=== PATIENT | female | born 1945 | race Caucasian/White ===

== ENCOUNTER 2018-03-31 12:28 | Inpatient (IN) | payer MEDICARE, OTHER, SELFPAY ==
[2018-03-31] VITALS (11 sets, daily range): BP systolic 99–138; BP diastolic 64–103; PULSE 59–67; RESP 15–20; TEMP 35.7–36.7; O2SAT 78–98; BMI 44.6
--- NOTE | 2018-03-31 12:53 | ED.NAVMDI ---
HPI - Nausea/Vomiting/Diarrhea General Chief complaint: Nausea/Vomiting/Diarrhea Stated complaint: nausea Time Seen by Provider: 03/31/18 12:30 Source: patient and EMS Mode of arrival: EMS Limitations: no limitations History of Present Illness HPI Narrative: 72-year-old female with complicated medical history presents with a chief complaint a vague headache for the past day or 2 as well as increasing fatigue, bilateral lower extremity swelling, shortness of breath, particularly with exertion. She is on oxygen at night as well as CPAP but has required oxygen during the day. Originally pulse ox was found to be in the mid 80s even at 2 L at her longterm. Patient denies any focal neurologic findings such as blurred vision, trouble with speech or extremity weakness. She denies any chest pain. She has had a nonproductive cough and has been nauseated but denies vomiting or diarrhea. Patient denies any change in her medications, additionally denying any missed doses of her Lasix. 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 Head CT ordered because patient complains that the dizziness she senses today is similar to prior stroke, but again patient has no other focal neurologic findings MD complaint: nausea Onset (ago): hour(s) Description of Diarrhea: none Related Data Home Medications Medication Instructions Recorded Confirmed albuterol sulfate 2 puff INH Q4H PRN #0 05/01/08 03/31/18 allopurinol 300 mg PO DAILY #0 05/01/08 03/31/18 cetirizine 10 mg PO DAILY #0 05/01/08 03/31/18 gabapentin 300 mg PO QPM #0 05/01/08 03/31/18 metoprolol succinate 100 mg PO BID #0 05/01/08 03/31/18 acetaminophen 1 tab PO Q4H PRN MDD 3000 mg 03/31/18 03/31/18 acetaminophen 650 mg PO Q4H PRN 03/31/18 03/31/18 amlodipine 2.5 mg PO DAILY 03/31/18 03/31/18 aspirin 81 mg PO DAILY 03/31/18 03/31/18 bisacodyl 1 supp WI PRN PRN 03/31/18 03/31/18 bisacodyl 5 - 10 mg PO PRN PRN 03/31/18 03/31/18 esomeprazole magnesium [Nexium] 40 mg PO DAILY 03/31/18 03/31/18 furosemide 80 mg PO BID 03/31/18 03/31/18 hydrocodone-acetaminophen 1 tab PO Q6H PRN 03/31/18 03/31/18 hydrocodone-acetaminophen 2 tab PO Q6H PRN 03/31/18 03/31/18 insulin aspart U-100 [Novolog 1 dose SUB-Q AC 03/31/18 03/31/18 U-100 Insulin aspart] insulin aspart U-100 [Novolog 1 dose SUB-Q PRN PRN 03/31/18 03/31/18 U-100 Insulin aspart] levetiracetam 500 mg PO BID 03/31/18 03/31/18 magnesium hydroxide [Milk of 30 ml PO PRN PRN 03/31/18 03/31/18 Magnesia] menthol [Biofreeze (menthol)] 1 applic TOPICAL Q4H PRN 03/31/18 03/31/18 ondansetron HCl 4 mg PO Q4H PRN 03/31/18 03/31/18 peg [id number] 2 drp OPHTHALMIC (EYE) Q6H PRN 03/31/18 03/31/18 [Artificial Tears([id number])] potassium chloride 20 meq PO DAILY 03/31/18 03/31/18 promethazine 25 mg IM .ONCE 03/31/18 03/31/18 rosuvastatin 5 mg PO QPM 03/31/18 03/31/18 sodium phosphates [Fleet Enema] 1 ea WI PRN PRN 03/31/18 03/31/18 tramadol 50 mg PO Q6H PRN 03/31/18 03/31/18 tramadol 100 mg PO Q6H PRN 03/31/18 03/31/18 venlafaxine 37.5 mg PO DAILY 03/31/18 03/31/18 Allergies Allergy/AdvReac Type Severity Reaction Status Date / Time NSAIDS (Non-Steroidal Allergy Difficulty Verified 03/31/18 12:46 Anti-Inflamma Breathing Review of Systems Review of Systems All systems reviewed & are unremarkable except as noted in HPI and below Constitutional Reports body ache(s), Denies chills, Denies fever(s), Denies lethargy, Reports weakness and Reports weight gain Eyes Denies change in vision, Denies eye discharge, Denies irritation and Denies loss of vision ENT Ears, Nose, Mouth, and Throat: Denies change in voice, Denies neck pain and Denies sore throat Cardiovascular Denies chest pain, Denies irregular heart rhythm, Denies lightheadedness, Denies palpitations, Reports dyspnea, Reports dyspnea on exertion and Reports orthopnea Respiratory Reports cough, Reports dyspnea, Reports dyspnea on exertion and Denies wheezing Gastrointestinal Gastrointestinal: Denies abdominal pain, Denies change in bowel habits, Denies diarrhea, Reports nausea and Denies vomiting Genitourinary Denies hematuria, Denies flank pain, Denies urinary incontinence and Denies urinary urgency Musculoskeletal Denies neck pain Comments: Bilateral lower extremity swelling Integumentary/Breasts Denies pruritus, Denies erythema, Denies rash and Denies wounds Neurologic Denies confusion, Denies loss of vision and Reports weakness Psychiatric Denies anxiety, Denies confusion, Denies depression, Denies homicidal ideation and Denies suicidal ideation Endocrine Denies palpitations Hematologic/Lymphatic Denies easy bruising Allergic/Immunologic Denies wheezing [facility] Social History Smoking Status: Never smoker Exam Narrative Exam Narrative: 72-year-old female in mild respiratory distress with some obvious dyspnea and tachypnea but ability to complete sentences. She is using her accessory muscles a bit Initial Vital Signs Initial Vital Signs: Vital Signs Temperature 97.8 F 03/31/18 12:33 Pulse Rate 67 03/31/18 12:33 Respiratory Rate 20 03/31/18 12:33 Blood Pressure 128/71 H 03/31/18 12:33 Pulse Oximetry 78 L 03/31/18 12:33 Const General: cooperative, well developed and in distress Nutritional Appearance: overweight Orientation: alert, awake, oriented x3 and not confused HENAL Head: normocephalic and atraumatic Ears: external ears normal and TM's normal bilaterally Nose: external nose normal and No nasal discharge Face and sinus: sinuses nontender, face symmetric, no sinus tenderness and No dry mucous membranes Mouth: oral mucosae normal and moist mucous membranes Teeth and gingiva: dentition normal Throat: tonsils normal and uvula midline Eyes General: appearance normal, both eyes and all related structures Eyelids: eyelids normal Conjunctivae: conjunctivae normal Sclera: sclerae normal Pupils: PERRL EOM: EOM intact bilaterally Chest Chest: normal inspection of the chest Resp Effort & Inspection: able to speak in complete sentences, respiratory distress and uses accessory muscles Auscultation: rales, no rhonchi and no wheezes Cardio Rate: regular rate Rhythm: regular rhythm Heart Sounds: no click, no gallops, no murmurs and no rubs Pulses: normal peripheral pulses Back/Spine/Pelvis Back: No CVA tenderness Cervical Spine: cervical ROM normal and No pain with cervical ROM Thoracic/Lumbar Spine: thoracic and lumbar spine normal to inspection Skin General: no rashes or lesions noted, No jaundice and No petechiae Neuro General: alert, oriented x3, gait normal and no focal motor deficits Speech: speech normal Extrem Right lower extremity: edema Left lower extremity: edema Course Orders Ordered: ED Orders 03/31/18 12:31 Consult to Respiratory Therapy Evaluate & Treat EKG-12 Lead Stat 03/31/18 12:58 B Type Natriuretic Peptide Stat Basic Metabolic Panel Stat Blood Culture Stat Complete Blood Count AUTO DIFF Stat Lactate (Lactic Acid) Stat Magnesium Stat Procalcitonin Stat Troponin & CK Cardiac Panel Stat 03/31/18 13:01 XR chest 1V Stat 03/31/18 13:03 CT head/brain wo con Stat Discontinued Medications Furosemide (Lasix) 40 mg IV NOW ONE Stop: 03/31/18 13:03 Last Admin: 03/31/18 13:21 Dose: 40 mg Reevaluation(s) Reevaluation #1: Patient feeling much better on oxygen by nasal cannula. She made sufficient urine with Lasix 40 mg IVP. Consultations Consultation #1: Dr. Almonte happy to accept patient Time: 14:09 Vital Signs - 8 hr 03/31/18 12:33 03/31/18 12:35 03/31/18 13:33 Temperature 97.8 F 97.8 F Pulse Rate 67 67 64 Respiratory Rate 20 20 16 Blood Pressure 128/71 H Blood Pressure [Right Arm] 128/71 H 128/71 H 129/73 H Pulse Oximetry 78 L 93 98 MDM - Nausea/Vomiting/Diarrhea Medical Records Attestation: I reviewed the patient's medical records. Lab Data Result diagrams: 03/31/18 12:58 03/31/18 12:58 Lab Results 03/31/18 03/31/18 03/31/18 Range/Units 12:58 12:58 12:58 WBC 9.0 (4.5-11.0) X10^3/uL RBC 4.55 (4.0-5.2) X10^6/uL Hgb 11.5 L (12.0-16.0) g/dL Hct 37.7 (36-46) % MCV 83.0 (80-100) fL MCH 25.4 L (26-34) PG MCHC 30.6 (30-36) % RDW 18.0 H (11.6-14.8) % Plt Count 142 L (150-400) X10^3/uL Neut % (Auto) 67.1 (50-75) % Lymph % (Auto) 25.9 (25-40) % Lander % (Auto) 5.4 (3-14) % Eos % (Auto) 1.1 L (2-4) % Baso % (Auto) 0.5 (0-2) % Neut # (Auto) 6000 H (3631-5163) /uL Sodium 142 (137-145) mmol/L Potassium 4.6 (3.4-5.1) mmol/L Chloride 99 (98-107) mmol/L Carbon Dioxide 30 (22-32) mmol/L BUN 40 H (7-17) mg/dL Creatinine 2.40 H (0.52-1.04) mg/dL Estimated GFR 19.9 L (>60) mL/min BUN/Creatinine Ratio 16.7 (6-22) Glucose 137 H (80-110) mg/dL Lactate (0.7-2.1) mmol/L Calcium 9.4 (8.4-10.2) mg/dL Magnesium 1.7 (1.6-2.3) mg/dL Total Creatine Kinase 83 (30-135) U/L B-Natriuretic Peptide 1540.0 H (<100) Procalcitonin 0.14 (<0.5) ng/mL 03/31/18 Range/Units 12:58 WBC (4.5-11.0) X10^3/uL RBC (4.0-5.2) X10^6/uL Hgb (12.0-16.0) g/dL Hct (36-46) % MCV (80-100) fL MCH (26-34) PG MCHC (30-36) % RDW (11.6-14.8) % Plt Count (150-400) X10^3/uL Neut % (Auto) (50-75) % Lymph % (Auto) (25-40) % Lander % (Auto) (3-14) % Eos % (Auto) (2-4) % Baso % (Auto) (0-2) % Neut # (Auto) (6804-5063) /uL Sodium (137-145) mmol/L Potassium (3.4-5.1) mmol/L Chloride (98-107) mmol/L Carbon Dioxide (22-32) mmol/L BUN (7-17) mg/dL Creatinine (0.52-1.04) mg/dL Estimated GFR (>60) mL/min BUN/Creatinine Ratio (6-22) Glucose (80-110) mg/dL Lactate 2.2 H (0.7-2.1) mmol/L Calcium (8.4-10.2) mg/dL Magnesium (1.6-2.3) mg/dL Total Creatine Kinase (30-135) U/L B-Natriuretic Peptide (<100) Procalcitonin (<0.5) ng/mL Imaging Data CT scan - head: Radiologist's impression: TECHNIQUE: Noncontrast 4.5 mm thick angled axial sections acquired from the foramen magnum to the vertex, with coronal and sagittal reformats. For radiation dose reduction, the following was used: automated exposure control, adjustment of mA and/or kV according to patient size. COMPARISON: None. FINDINGS: Image quality: Excellent. CSF spaces: Basal cisterns are patent. No extra-axial fluid collections. Ventricles are normal in size and shape. Brain: No midline shift. No intracranial masses or hemorrhage. Focal area of hypoattenuation consistent with encephalomalacia in the left cerebral hemisphere. Skull and face: Calvarium and visualized facial bones are intact, without suspicious lesions. Bilateral lens replacements noted. There are punctate foci of air within and surrounding the left pterygoid muscles and adjacent the left cavernous internal carotid artery, of uncertain clinical significance. Sinuses: Mastoid air cells are clear. There are bilateral maxillary sinus mucosal retention cysts. IMPRESSION: #1. No acute intracranial hemorrhage. #2. 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 Superimposed acute infarct in this region is difficult to exclude. Consider followup brain MRI if there is continued clinical concern for acute infarct. #3. Punctate foci of air within and surrounding the left pterygoid muscles and adjacent to the left cavernous internal carotid artery, which are of uncertain clinical significance. Dictated by: Kevyn Palm M.D. on 03/31/2018 at 13:35 Approved by: Kevyn Palm M.D. on 03/31/2018 at 13:44 ECG Data Attestation: I personally reviewed and interpreted this ECG as follows: Prior ECG tracings: not available for review Interpretation: Paced rhythm. No obvious ischemia or ectopy Discharge Plan Departure Patient Disposition: Admitted As Inpatient Clinical Impression: Acute CHF, Acute renal failure, Elevated troponin
--- NOTE | 2018-03-31 13:01 | DI.RAD.S_ITS ---
PROCEDURE: XR CHEST 1V INDICATIONS: shortness of breath, hypoxic, crackles in bilateral bases TECHNIQUE: One view of the chest was acquired. COMPARISON: None. FINDINGS: Surgical changes and devices: EKG leads project over the chest. Left chest cardiac pacer device with leads projecting to the right atrium and right ventricle. Lungs and pleura: No pleural effusions or pneumothorax. Bibasilar linear opacities most consistent with atelectasis. Mediastinum: There is mild enlargement of the cardiac and mediastinal silhouettes, as well as of the bilateral kinga and pulmonary vasculature. Bones and chest wall: No suspicious bony lesions. Overlying soft tissues appear unremarkable. IMPRESSION: #1. Mild cardiomegaly. #2. Enlargement of the bilateral kinga and pulmonary vasculature which may represent a sequela of pulmonary arterial hypertension or hilar lymphadenopathy. #3. Bibasilar atelectasis. Dictated by: Kevyn Palm M.D. on 03/31/2018 at 13:27 Approved by: Kevyn Palm M.D. on 03/31/2018 at 13:31
--- NOTE | 2018-03-31 13:03 | DI.CT.S_ITS ---
PROCEDURE: CT HEAD/BRAIN WO CON INDICATIONS: confusion, dizzy, hx CVA, feels similar. TECHNIQUE: Noncontrast 4.5 mm thick angled axial sections acquired from the foramen magnum to the vertex, with coronal and sagittal reformats. For radiation dose reduction, the following was used: automated exposure control, adjustment of mA and/or kV according to patient size. COMPARISON: None. FINDINGS: Image quality: Excellent. CSF spaces: Basal cisterns are patent. No extra-axial fluid collections. Ventricles are normal in size and shape. Brain: No midline shift. No intracranial masses or hemorrhage. Focal area of hypoattenuation consistent with encephalomalacia in the left cerebral hemisphere. Skull and face: Calvarium and visualized facial bones are intact, without suspicious lesions. Bilateral lens replacements noted. There are punctate foci of air within and surrounding the left pterygoid muscles and adjacent the left cavernous internal carotid artery, of uncertain clinical significance. Sinuses: Mastoid air cells are clear. There are bilateral maxillary sinus mucosal retention cysts. IMPRESSION: #1. No acute intracranial hemorrhage. #2. 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 Superimposed acute infarct in this region is difficult to exclude. Consider followup brain MRI if there is continued clinical concern for acute infarct. #3. Punctate foci of air within and surrounding the left pterygoid muscles and adjacent to the left cavernous internal carotid artery, which are of uncertain clinical significance. Dictated by: Kevyn Palm M.D. on 03/31/2018 at 13:35 Approved by: Kevyn Palm M.D. on 03/31/2018 at 13:44
[2018-03-31] MEDS: FUROSEMIDE 40 MG/4 ML VIAL IV (13:21)
[2018-03-31 13:24] LABS: Add Manual Diff / Slide Review NO; Basophils Percent Auto 0.5 % (0-2); Eosinophils Percent Auto 1.1 % (2-4); Hematocrit 37.7 % (36-46); Hemoglobin 11.5 g/dL (12.0-16.0); Lymphocytes Percent Auto 25.9 % (25-40); Mean Corpuscular HGB Conc 30.6 % (30-36); Mean Corpuscular Hemoglobin 25.4 PG (26-34); Monocytes Percent Auto 5.4 % (3-14); Neutrophils Absolute Auto 6000 /uL (3000-5900); Neutrophils Percent Auto 67.1 % (50-75); Platelet Count 142 X10^3/uL (150-400); Red Blood Cell Count 4.55 X10^6/uL (4.0-5.2)
[2018-03-31 13:29] LABS: BUN Creatinine Ratio 16.7 (6-22); Blood Urea Nitrogen 40 mg/dL (7-17); Calcium 9.4 mg/dL (8.4-10.2); Carbon Dioxide 30 mmol/L (22-32); Chloride 99 mmol/L (98-107); Creatine Kinase 83 U/L (30-135); Estimated Glomerular Filt Rate 19.9 mL/min (>60); Glucose 137 mg/dL (80-110); HEMOLYSIS < 15 (0-50); Lactate (Lactic Acid) 2.2 mmol/L (0.7-2.1); Magnesium 1.7 mg/dL (1.6-2.3); Potassium 4.6 mmol/L (3.4-5.1)
[2018-03-31 13:36] LABS: Sodium 142 mmol/L (137-145)
--- NOTE | 2018-03-31 13:46 | ED_ITS ---
HPI - Nausea/Vomiting/Diarrhea General Chief complaint: Nausea/Vomiting/Diarrhea Stated complaint: nausea Time Seen by Provider: 03/31/18 12:30 Source: patient and EMS Mode of arrival: EMS Limitations: no limitations History of Present Illness HPI Narrative: 72-year-old female with complicated medical history presents with a chief complaint a vague headache for the past day or 2 as well as increasing fatigue, bilateral lower extremity swelling, shortness of breath, particularly with exertion. She is on oxygen at night as well as CPAP but has required oxygen during the day. Originally pulse ox was found to be in the mid 80s even at 2 L at her [facility]. Patient denies any focal neurologic findings such as blurred vision, trouble with speech or extremity weakness. She denies any chest pain. She has had a nonproductive cough and has been nauseated but denies vomiting or diarrhea. Patient denies any change in her medications, additionally denying any missed doses of her Lasix. 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 Head CT ordered because patient complains that the dizziness she senses today is similar to prior stroke, but again patient has no other focal neurologic findings MD complaint: nausea Onset (ago): hour(s) Description of Diarrhea: none Related Data Home Medications Medication Instructions Recorded Confirmed albuterol sulfate 2 puff INH Q4H PRN #0 05/01/08 03/31/18 allopurinol 300 mg PO DAILY #0 05/01/08 03/31/18 cetirizine 10 mg PO DAILY #0 05/01/08 03/31/18 gabapentin 300 mg PO QPM #0 05/01/08 03/31/18 metoprolol succinate 100 mg PO BID #0 05/01/08 03/31/18 acetaminophen 1 tab PO Q4H PRN MDD 3000 mg 03/31/18 03/31/18 acetaminophen 650 mg PO Q4H PRN 03/31/18 03/31/18 amlodipine 2.5 mg PO DAILY 03/31/18 03/31/18 aspirin 81 mg PO DAILY 03/31/18 03/31/18 bisacodyl 1 supp AZ PRN PRN 03/31/18 03/31/18 bisacodyl 5 - 10 mg PO PRN PRN 03/31/18 03/31/18 esomeprazole magnesium [Nexium] 40 mg PO DAILY 03/31/18 03/31/18 furosemide 80 mg PO BID 03/31/18 03/31/18 hydrocodone-acetaminophen 1 tab PO Q6H PRN 03/31/18 03/31/18 hydrocodone-acetaminophen 2 tab PO Q6H PRN 03/31/18 03/31/18 insulin aspart U-100 [Novolog 1 dose SUB-Q AC 03/31/18 03/31/18 U-100 Insulin aspart] insulin aspart U-100 [Novolog 1 dose SUB-Q PRN PRN 03/31/18 03/31/18 U-100 Insulin aspart] levetiracetam 500 mg PO BID 03/31/18 03/31/18 magnesium hydroxide [Milk of 30 ml PO PRN PRN 03/31/18 03/31/18 Magnesia] menthol [Biofreeze (menthol)] 1 applic TOPICAL Q4H PRN 03/31/18 03/31/18 ondansetron HCl 4 mg PO Q4H PRN 03/31/18 03/31/18 peg [id number] 2 drp OPHTHALMIC (EYE) Q6H PRN 03/31/18 03/31/18 [Artificial Tears([id number])] potassium chloride 20 meq PO DAILY 03/31/18 03/31/18 promethazine 25 mg IM .ONCE 03/31/18 03/31/18 rosuvastatin 5 mg PO QPM 03/31/18 03/31/18 sodium phosphates [Fleet Enema] 1 ea [place] PRN PRN 03/31/18 03/31/18 tramadol 50 mg PO Q6H PRN 03/31/18 03/31/18 tramadol 100 mg PO Q6H PRN 03/31/18 03/31/18 venlafaxine 37.5 mg PO DAILY 03/31/18 03/31/18 Allergies Allergy/AdvReac Type Severity Reaction Status Date / Time NSAIDS (Non-Steroidal Allergy Difficulty Verified 03/31/18 12:46 Anti-Inflamma Breathing Review of Systems Review of Systems All systems reviewed & are unremarkable except as noted in HPI and below Constitutional Reports body ache(s), Denies chills, Denies fever(s), Denies lethargy, Reports weakness and Reports weight gain Eyes Denies change in vision, Denies eye discharge, Denies irritation and Denies loss of vision ENT Ears, Nose, Mouth, and Throat: Denies change in voice, Denies neck pain and Denies sore throat Cardiovascular Denies chest pain, Denies irregular heart rhythm, Denies lightheadedness, Denies palpitations, Reports dyspnea, Reports dyspnea on exertion and Reports orthopnea Respiratory Reports cough, Reports dyspnea, Reports dyspnea on exertion and Denies wheezing Gastrointestinal Gastrointestinal: Denies abdominal pain, Denies change in bowel habits, Denies diarrhea, Reports nausea and Denies vomiting Genitourinary Denies hematuria, Denies flank pain, Denies urinary incontinence and Denies urinary urgency Musculoskeletal Denies neck pain Comments: Bilateral lower extremity swelling Integumentary/Breasts Denies pruritus, Denies erythema, Denies rash and Denies wounds Neurologic Denies confusion, Denies loss of vision and Reports weakness Psychiatric Denies anxiety, Denies confusion, Denies depression, Denies homicidal ideation and Denies suicidal ideation Endocrine Denies palpitations Hematologic/Lymphatic Denies easy bruising Allergic/Immunologic Denies wheezing [facility] Social History Smoking Status: Never smoker Exam Narrative Exam Narrative: 72-year-old female in mild respiratory distress with some obvious dyspnea and tachypnea but ability to complete sentences. She is using her accessory muscles a bit Initial Vital Signs Initial Vital Signs: Vital Signs Temperature 97.8 F 03/31/18 12:33 Pulse Rate 67 03/31/18 12:33 Respiratory Rate 20 03/31/18 12:33 Blood Pressure 128/71 H 03/31/18 12:33 Pulse Oximetry 78 L 03/31/18 12:33 Const General: cooperative, well developed and in distress Nutritional Appearance: overweight Orientation: alert, awake, oriented x3 and not confused HENOR Head: normocephalic and atraumatic Ears: external ears normal and TM's normal bilaterally Nose: external nose normal and No nasal discharge Face and sinus: sinuses nontender, face symmetric, no sinus tenderness and No dry mucous membranes Mouth: oral mucosae normal and moist mucous membranes Teeth and gingiva: dentition normal Throat: tonsils normal and uvula midline Eyes General: appearance normal, both eyes and all related structures Eyelids: eyelids normal Conjunctivae: conjunctivae normal Sclera: sclerae normal Pupils: PERRL EOM: EOM intact bilaterally Chest Chest: normal inspection of the chest Resp Effort & Inspection: able to speak in complete sentences, respiratory distress and uses accessory muscles Auscultation: rales, no rhonchi and no wheezes Cardio Rate: regular rate Rhythm: regular rhythm Heart Sounds: no click, no gallops, no murmurs and no rubs Pulses: normal peripheral pulses Back/Spine/Pelvis Back: No CVA tenderness Cervical Spine: cervical ROM normal and No pain with cervical ROM Thoracic/Lumbar Spine: thoracic and lumbar spine normal to inspection Skin General: no rashes or lesions noted, No jaundice and No petechiae Neuro General: alert, oriented x3, gait normal and no focal motor deficits Speech: speech normal Extrem Right lower extremity: edema Left lower extremity: edema Course Orders Ordered: ED Orders 03/31/18 12:31 Consult to Respiratory Therapy Evaluate & Treat EKG-12 Lead Stat 03/31/18 12:58 B Type Natriuretic Peptide Stat Basic Metabolic Panel Stat Blood Culture Stat Complete Blood Count AUTO DIFF Stat Lactate (Lactic Acid) Stat Magnesium Stat Procalcitonin Stat Troponin & CK Cardiac Panel Stat 03/31/18 13:01 XR chest 1V Stat 03/31/18 13:03 CT head/brain wo con Stat Discontinued Medications Furosemide (Lasix) 40 mg IV NOW ONE Stop: 03/31/18 13:03 Last Admin: 03/31/18 13:21 Dose: 40 mg Reevaluation(s) Reevaluation #1: Patient feeling much better on oxygen by nasal cannula. She made sufficient urine with Lasix 40 mg IVP. Consultations Consultation #1: Dr. Almonte happy to accept patient Time: 14:09 Vital Signs - 8 hr 03/31/18 12:33 03/31/18 12:35 03/31/18 13:33 Temperature 97.8 F 97.8 F Pulse Rate 67 67 64 Respiratory Rate 20 20 16 Blood Pressure 128/71 H Blood Pressure [Right Arm] 128/71 H 128/71 H 129/73 H Pulse Oximetry 78 L 93 98 MDM - Nausea/Vomiting/Diarrhea Medical Records Attestation: I reviewed the patient's medical records. Lab Data Result diagrams: 03/31/18 12:58 03/31/18 12:58 Lab Results 03/31/18 03/31/18 03/31/18 Range/Units 12:58 12:58 12:58 WBC 9.0 (4.5-11.0) X10^3/uL RBC 4.55 (4.0-5.2) X10^6/uL Hgb 11.5 L (12.0-16.0) g/dL Hct 37.7 (36-46) % MCV 83.0 (80-100) fL MCH 25.4 L (26-34) PG MCHC 30.6 (30-36) % RDW 18.0 H (11.6-14.8) % Plt Count 142 L (150-400) X10^3/uL Neut % (Auto) 67.1 (50-75) % Lymph % (Auto) 25.9 (25-40) % [place] % (Auto) 5.4 (3-14) % Eos % (Auto) 1.1 L (2-4) % Baso % (Auto) 0.5 (0-2) % Neut # (Auto) 6000 H (5920-2872) /uL Sodium 142 (137-145) mmol/L Potassium 4.6 (3.4-5.1) mmol/L Chloride 99 (98-107) mmol/L Carbon Dioxide 30 (22-32) mmol/L BUN 40 H (7-17) mg/dL Creatinine 2.40 H (0.52-1.04) mg/dL Estimated GFR 19.9 L (>60) mL/min BUN/Creatinine Ratio 16.7 (6-22) Glucose 137 H (80-110) mg/dL Lactate (0.7-2.1) mmol/L Calcium 9.4 (8.4-10.2) mg/dL Magnesium 1.7 (1.6-2.3) mg/dL Total Creatine Kinase 83 (30-135) U/L B-Natriuretic Peptide 1540.0 H (<100) Procalcitonin 0.14 (<0.5) ng/mL 03/31/18 Range/Units 12:58 WBC (4.5-11.0) X10^3/uL RBC (4.0-5.2) X10^6/uL Hgb (12.0-16.0) g/dL Hct (36-46) % MCV (80-100) fL MCH (26-34) PG MCHC (30-36) % RDW (11.6-14.8) % Plt Count (150-400) X10^3/uL Neut % (Auto) (50-75) % Lymph % (Auto) (25-40) % [place] % (Auto) (3-14) % Eos % (Auto) (2-4) % Baso % (Auto) (0-2) % Neut # (Auto) (8202-7704) /uL Sodium (137-145) mmol/L Potassium (3.4-5.1) mmol/L Chloride (98-107) mmol/L Carbon Dioxide (22-32) mmol/L BUN (7-17) mg/dL Creatinine (0.52-1.04) mg/dL Estimated GFR (>60) mL/min BUN/Creatinine Ratio (6-22) Glucose (80-110) mg/dL Lactate 2.2 H (0.7-2.1) mmol/L Calcium (8.4-10.2) mg/dL Magnesium (1.6-2.3) mg/dL Total Creatine Kinase (30-135) U/L B-Natriuretic Peptide (<100) Procalcitonin (<0.5) ng/mL Imaging Data CT scan - head: Radiologist's impression: TECHNIQUE: Noncontrast 4.5 mm thick angled axial sections acquired from the foramen magnum to the vertex, with coronal and sagittal reformats. For radiation dose reduction, the following was used: automated exposure control, adjustment of mA and/or kV according to patient size. COMPARISON: None. FINDINGS: Image quality: Excellent. CSF spaces: Basal cisterns are patent. No extra-axial fluid collections. Ventricles are normal in size and shape. Brain: No midline shift. No intracranial masses or hemorrhage. Focal area of hypoattenuation consistent with encephalomalacia in the left cerebral hemisphere. Skull and face: Calvarium and visualized facial bones are intact, without suspicious lesions. Bilateral lens replacements noted. There are punctate foci of air within and surrounding the left pterygoid muscles and adjacent the left cavernous internal carotid artery, of uncertain clinical significance. Sinuses: Mastoid air cells are clear. There are bilateral maxillary sinus mucosal retention cysts. IMPRESSION: #1. No acute intracranial hemorrhage. #2. 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 Superimposed acute infarct in this region is difficult to exclude. Consider followup brain MRI if there is continued clinical concern for acute infarct. #3. Punctate foci of air within and surrounding the left pterygoid muscles and adjacent to the left cavernous internal carotid artery, which are of uncertain clinical significance. Dictated by: Kevyn Palm M.D. on 03/31/2018 at 13:35 Approved by: Kevyn Palm M.D. on 03/31/2018 at 13:44 ECG Data Attestation: I personally reviewed and interpreted this ECG as follows: Prior ECG tracings: not available for review Interpretation: Paced rhythm. No obvious ischemia or ectopy Discharge Plan Departure Patient Disposition: Admitted As Inpatient Clinical Impression: Acute CHF, Acute renal failure, Elevated troponin
[2018-03-31 13:47] LABS: Procalcitonin 0.14 ng/mL (<0.5)
[2018-03-31 13:50] LABS: Troponin I 0.123 ng/mL (0.01-0.034)
[2018-03-31] MEDS: ASPIRIN 81 MG TAB 324 MG PO (14:12)
--- NOTE | 2018-03-31 16:47 | P.HP_ITS ---
History of Present Illness Date Patient Seen: 03/31/18 Time Patient Seen: 16:46 Chief complaint: nausea Narrative: S and later was admitted from [facility] for progressive shortness of breath for the last 3 or 4 days of leg edema she was recently in the hospital about a month or so ago and was admitted to the [facility] for rehabilitation she is about to be discharged from there on the 11 of April the meantime developed the worsening of breath and breathlessness and was admitted he denies any chest pain or palpitations or orthopnea the last admission she says because of hypercalcemia and she does not have any history of mental status is her CA Patient History Family & Social History Family History: Reviewed 03/31/18 by Kehinde Estrada MD Safety & Behavioral: Feels Safe in Current Yes Environment Been Physically Hurt or No Threatened By a Person Tobacco & Substance use: Smoking Status Never smoker alcohol intake frequency 0-2 drinks per day Substance Use Type does not use Meds Home Medications Medication Instructions Recorded Confirmed Type albuterol sulfate 2 puff INH Q4H PRN #0 05/01/08 03/31/18 History allopurinol 300 mg PO DAILY #0 05/01/08 03/31/18 History cetirizine 10 mg PO DAILY #0 05/01/08 03/31/18 History gabapentin 300 mg PO QPM #0 05/01/08 03/31/18 History metoprolol succinate 100 mg PO BID #0 05/01/08 03/31/18 History acetaminophen 1 tab PO Q4H PRN MDD 3000 mg 03/31/18 03/31/18 History acetaminophen 650 mg PO Q4H PRN 03/31/18 03/31/18 History amlodipine 2.5 mg PO DAILY 03/31/18 03/31/18 History aspirin 81 mg PO DAILY 03/31/18 03/31/18 History bisacodyl 1 supp IN PRN PRN 03/31/18 03/31/18 History bisacodyl 5 - 10 mg PO PRN PRN 03/31/18 03/31/18 History esomeprazole magnesium [Nexium] 40 mg PO DAILY 03/31/18 03/31/18 History furosemide 80 mg PO BID 03/31/18 03/31/18 History hydrocodone-acetaminophen 1 tab PO Q6H PRN 03/31/18 03/31/18 History hydrocodone-acetaminophen 2 tab PO Q6H PRN 03/31/18 03/31/18 History insulin aspart U-100 [Novolog 1 dose SUB-Q AC 03/31/18 03/31/18 History U-100 Insulin aspart] insulin aspart U-100 [Novolog 1 dose SUB-Q PRN PRN 03/31/18 03/31/18 History U-100 Insulin aspart] levetiracetam 500 mg PO BID 03/31/18 03/31/18 History magnesium hydroxide [Milk of 30 ml PO PRN PRN 03/31/18 03/31/18 History Magnesia] menthol [Biofreeze (menthol)] 1 applic TOPICAL Q4H PRN 03/31/18 03/31/18 History ondansetron HCl 4 mg PO Q4H PRN 03/31/18 03/31/18 History peg [id number] 2 drp OPHTHALMIC (EYE) Q6H PRN 03/31/18 03/31/18 History [Artificial Tears(qp-mulp-bmsc)] potassium chloride 20 meq PO DAILY 03/31/18 03/31/18 History promethazine 25 mg IM .ONCE 03/31/18 03/31/18 History rosuvastatin 5 mg PO QPM 03/31/18 03/31/18 History sodium phosphates [Fleet Enema] 1 ea IN PRN PRN 03/31/18 03/31/18 History tramadol 50 mg PO Q6H PRN 03/31/18 03/31/18 History tramadol 100 mg PO Q6H PRN 03/31/18 03/31/18 History venlafaxine 37.5 mg PO DAILY 03/31/18 03/31/18 History Allergies Allergy/AdvReac Type Severity Reaction Status Date / Time NSAIDS (Non-Steroidal Allergy Difficulty Verified 03/31/18 12:46 Anti-Inflamma Breathing Review of Systems Review of Systems All systems reviewed & are unremarkable except as noted in HPI and below Exam Vital Signs (past 8 hours): - 03/31/18 12:33 03/31/18 12:35 03/31/18 13:33 Temperature 97.8 F 97.8 F Pulse Rate 67 67 64 Respiratory Rate 20 20 16 Blood Pressure 128/71 H Blood Pressure [Right Arm] 128/71 H 128/71 H 129/73 H Pulse Oximetry 78 L 93 98 03/31/18 14:40 03/31/18 15:44 Temperature Pulse Rate 67 61 Respiratory Rate 20 18 Blood Pressure 126/103 H Blood Pressure [Right Arm] 133/88 H Pulse Oximetry 97 95 Oxygen Delivery Method Room Air Oxygen Flow Rate 5 Const General: cooperative, healthy appearing and comfortable Nutritional Appearance: overweight HENRI Head: normal to inspection Ears: hearing grossly normal bilaterally Nose: external nose normal Face and sinus: normal facial exam Eyes General: appearance normal, both eyes and all related structures Eyelids: eyelids normal Conjunctivae: conjunctivae normal Sclera: sclerae normal Pupils: PERRL EOM: EOM intact bilaterally Chest Chest: normal inspection of the chest Resp Effort & Inspection: normal respiratory effort and able to speak in complete sentences Auscultation: clear to auscultation bilaterally Cardio Rate: regular rate Rhythm: regular rhythm Heart Sounds: S1 normal and S2 normal GI Inspection: normal to inspection Palpation: soft Back/Spine/Pelvis Back: normal to inspection and No back tenderness Skin General: no rashes or lesions noted Neuro General: alert, awake and oriented x3 Cranial Nerves: CN's II-XI intact bilaterally Cognition: normal cognition Speech: speech normal Gait: normal gait Motor: muscle tone normal throughout Sensory Exam: no sensory deficits noted Extrem General: normal to inspection and edema (vijaya 2++) Psych Appearance: grossly normal Speech and Movement: speech and movement normal Mood: congruent mood Affect: normal affect Attitude: cooperative Thought Process: normal Thought Content: normal Judgment: judgment good Objective Labs Result Diagrams: 03/31/18 12:58 03/31/18 12:58 Labs: Laboratory Results - last 24 hr 03/31/18 03/31/18 03/31/18 12:58 12:58 12:58 WBC 9.0 RBC 4.55 Hgb 11.5 L Hct 37.7 MCV 83.0 MCH 25.4 L MCHC 30.6 RDW 18.0 H Plt Count 142 L Neut % (Auto) 67.1 Lymph % (Auto) 25.9 [place] % (Auto) 5.4 Eos % (Auto) 1.1 L Baso % (Auto) 0.5 Neut # (Auto) 6000 H Sodium 142 Potassium 4.6 Chloride 99 Carbon Dioxide 30 BUN 40 H Creatinine 2.40 H Estimated GFR 19.9 L BUN/Creatinine Ratio 16.7 Glucose 137 H Lactate Calcium 9.4 Magnesium 1.7 Total Creatine Kinase 83 Troponin I 0.123 H* B-Natriuretic Peptide 1540.0 H Procalcitonin 0.14 03/31/18 12:58 WBC RBC Hgb Hct MCV MCH MCHC RDW Plt Count Neut % (Auto) Lymph % (Auto) [place] % (Auto) Eos % (Auto) Baso % (Auto) Neut # (Auto) Sodium Potassium Chloride Carbon Dioxide BUN Creatinine Estimated GFR BUN/Creatinine Ratio Glucose Lactate 2.2 H Calcium Magnesium Total Creatine Kinase Troponin I B-Natriuretic Peptide Procalcitonin Assessment & Plan Plan: Assessment/Plan Narrative: 1. CHF did some worsening shortness of breath was given diuretics in the ER wich has been continued 2. CKD creatinine slightly bumped up from 1.8 to 2.4 Generalized anasarca History of hypercalcemia visit recheck the calcium level Time Spent With Patient Time with patient: Greater than 35 minutes
[2018-03-31 17:18] LABS: Reflexed Lactate in 2 Hours Y
[2018-03-31 17:46] LABS: Lactate 2HR (Lactic Acid Rflx) 1.6 mmol/L (0.7-2.1)
[2018-03-31] MEDS: GABAPENTIN 300 MG CAPSULE PO (17:56)
[2018-03-31] MEDS: ROSUVASTATIN 10 MG TABLET 5 MG PO (17:56)
[2018-03-31 20:23] LABS: Bacteria Urine None Seen; RBC Urine None Seen (0-5/HPF)
[2018-03-31 20:32] LABS: Culture Indicated Urine Specimen Cultured; Squamous Epithelial Cell Urine 0-1 /HPF; WBC Urine 10-30/HPF (0-5/HPF)
[2018-03-31] MEDS: METOPROLOL ER 50 MG TABLET 100 MG PO (22:04)
[2018-03-31] MEDS: FUROSEMIDE 40 MG TABLET 80 MG PO (22:04)
[2018-03-31] MEDS: levETIRAcetam 250 MG TABLET 500 MG PO (22:05)
[2018-04-01] VITALS (13 sets, daily range): BP systolic 109–132; BP diastolic 67–73; PULSE 60–64; RESP 16–18; TEMP 35.9–37; O2SAT 88–94
[2018-04-01] MEDS: ACETAMINOPHEN 325 MG TABLET 650 MG PO (04:49)
[2018-04-01] MEDS: PANTOPRAZOLE 40 MG TABLET PO (06:46)
[2018-04-01 08:34] LABS: Add Manual Diff / Slide Review NO; Basophils Percent Auto 0.6 % (0-2); Eosinophils Percent Auto 4.6 % (2-4); Hematocrit 35.5 % (36-46); Hemoglobin 10.8 g/dL (12.0-16.0); Lymphocytes Percent Auto 16.8 % (25-40); Mean Corpuscular HGB Conc 30.5 % (30-36); Mean Corpuscular Volume 85.1 fL (80-100); Monocytes Percent Auto 6.3 % (3-14); Neutrophils Absolute Auto 7100 /uL (3000-5900); Neutrophils Percent Auto 71.7 % (50-75); Platelet Count 116 X10^3/uL (150-400); Red Blood Cell Count 4.17 X10^6/uL (4.0-5.2); Red Cell Distribution Width 17.9 % (11.6-14.8); White Blood Cell Count 9.8 X10^3/uL (4.5-11.0)
[2018-04-01] MEDS: METOPROLOL ER 50 MG TABLET 100 MG PO ×2 (08:54→21:21)
[2018-04-01] MEDS: ALLOPURINOL 300 MG TABLET PO (08:55)
[2018-04-01] MEDS: ASPIRIN EC 81 MG TABLET PO (08:55)
[2018-04-01] MEDS: AMLODIPINE 2.5 MG TABLET PO (08:55)
[2018-04-01] MEDS: FUROSEMIDE 40 MG TABLET 80 MG PO (08:55)
[2018-04-01] MEDS: levETIRAcetam 250 MG TABLET 500 MG PO ×2 (08:55→21:21)
[2018-04-01] MEDS: POTASSIUM CHLORIDE 20 MEQ TAB PO (08:56)
[2018-04-01] MEDS: LORATADINE 10 MG TABLET PO (08:56)
[2018-04-01] MEDS: VENLAFAXINE ER 37.5 MG CAP PO (09:03)
[2018-04-01] MEDS: INSULIN ASPART 100 UNIT/ML INSULN PEN SUBCUT ×3 (09:03→17:17)
[2018-04-01 10:23] LABS: Alanine Aminotransferase 126 IU/L (9-52); Albumin 3.4 g/dL (3.5-5.0); Albumin Globulin Ratio 1.2 (1.0-2.8); Alkaline Phosphatase 53 U/L (38-126); Aspartate Aminotransferase 206 IU/L (14-36); BUN Creatinine Ratio 19.6 (6-22); Bilirubin Total 0.5 mg/dL (0.2-1.3); Bilirubin Unconjugated 0.1 mg/dL (0.0-1.1); Blood Urea Nitrogen 53 mg/dL (7-17); Calcium 8.9 mg/dL (8.4-10.2); Chloride 100 mmol/L (98-107); Estimated Glomerular Filt Rate 17.4 mL/min (>60); Globulin 2.8 g/dL (1.7-4.1); Glucose 126 mg/dL (80-110); HEMOLYSIS 20 (0-50); Potassium 4.3 mmol/L (3.4-5.1); Sodium 139 mmol/L (137-145); Total Protein 6.2 g/dL (6.3-8.2)
[2018-04-01 10:36] LABS: Carbon Dioxide 28 mmol/L (22-32)
--- NOTE | 2018-04-01 14:33 | PC.NURSE ---
Pt up to br to attempt to void. Unable to void and states she feels no bladder pressure. Bladder scanned Pt with result of >999. Notified Dr. Almonte and order to place farley was initiated. Farley immediately produced urine for a result of 1300cc clear to cloudy yellow urine out.
--- NOTE | 2018-04-01 15:16 | CM.DANOTE ---
Patient is a 72 year old female who was admitted on 03/31/18 for Nausea/CHF. Pt has MCR and for [employer] for insurance and her PCP is Dr. Gutierrez. EMR was reviewed. Per MD, pt is not medically stable to d/c yet today. SW met bedside with pt and explained role and pt confirmed that she lives at home with her /DPOA and her 17 year old grandson and is typically Independent at baseline. Pt states that she has a hx of SNF at [facility] and [facility] and confirms that she has been at [facility] for almost a month for rehab and was about to discharge home with [facility] to be set up when she ended up being admitted here to [facility]. Pt states that she has made significant progress with therapies at [facility] and feels much stronger and her preference is to d/c home with her supportive and grandson who can both assist if needed and [facility] RN/PT/OT/BOW MAKER GIFT WRAPPING. RACQUEL called [facility] and made new referral and Jada faxed clinicals for [facility] to review. F2F and orders will be needed if pt is safe for d/c home. SW to follow for likely need of PT eval to determine d/c planning needs. Plan: SW to follow closely for PT eval to determine if pt is safe for d/c home with family support and [facility] reviewing for RN/PT/OT/BOW MAKER GIFT WRAPPING vs return to [facility]. JAC Castano Discharge Planning/Care Management CM Discharge Assessment Start: 04/01/18 15:13 Freq: Status: Active Protocol: Document 04/01/18 15:13 BF (Rec: 04/01/18 15:16 [email or web address]) Discharge Planning Assessment Assigned Chief Financial Officer JAC DPOA/Assigned Designee Name spouse Kade Contact Information [phone] Advance Directives? Yes Advance Directives on File No: at home req. from spouse History Provided By Patient Medical Record Has Patient been admitted in last 30 No days? Prior Living Arrangements House Comment From home with spouse but was at [facility] for rehab Household Members spouse family Comment Lives with and 17 year old grandson Type of transporation used prior to Drives own vehicle admit Facility Name Admitted From: [facility] Willing to Return to Facility? Yes Independent with ADL's Yes Is patient alert and oriented? Yes Needs Assistance With Bathing Managing Medications Home Chores / Shopping Caregiver for Another Yes: teenage grandson Community Services used prior to Physical Therapy admission: Patient/Family Preference Home with Home Health Comment Patient wants home with [facility] Barriers to Discharge No Discharge Plan Home with Home Health Community Services Physical Therapy Occupational Therapy Home Health Aid Home Health Nurse Transportation Arrangement Family can provide transport Referrals Initiated Home Health If patient plan is home with home health No : Has signed face to face form been completed? Medicare Choice List Provided Yes SNF/HH Preference [facility] Has Agency SNF been contacted Yes Whiteboard Updated in Patient Room with Yes name and ext. # of Chief Financial Officer Review Status In Process Next Review Date 04/02/18 Next Review Type Continued Stay Review
[2018-04-01] MEDS: TAMSULOSIN 0.4 MG CAPSULE PO (15:43)
[2018-04-01] MEDS: ROSUVASTATIN 10 MG TABLET 5 MG PO (17:23)
[2018-04-01] MEDS: GABAPENTIN 300 MG CAPSULE PO (17:23)
--- NOTE | 2018-04-01 19:48 | P.PN_ITS ---
Subjective Date Patient Seen: 04/01/18 Time Patient Seen: 13:47 Interval history: Admitted with the chest discomfort the difficulty breathing has a previous history of congestive heart failure CKD She is in the hospital about a month or so ago she says was due to hypercalcemia Repeat calcium this time was normal both yesterday and today Her creatinine is bumped up higher than the previous time on admission and now it is still further higher and maybe she is getting too much diuretics Exam Vital Signs (past 8 hours): - 04/01/18 12:00 04/01/18 15:00 04/01/18 15:48 Temperature 98.5 F 98.5 F Pulse Rate 61 60 Respiratory Rate 18 18 Blood Pressure 119/70 109/70 Pulse Oximetry 94 92 91 Oxygen Delivery Method Nasal Cannula Oxygen Flow Rate 3.5 Const General: cooperative, healthy appearing and comfortable Orientation: alert, awake and oriented x3 HENMT Head: normal to inspection Ears: hearing grossly normal bilaterally Nose: external nose normal Face and sinus: normal facial exam Eyes Eyelids: eyelids normal Cornea: corneas normal Pupils: PERRL EOM: EOM intact bilaterally Neck Neck: normal visual inspection Thyroid: thyroid normal Resp Effort & Inspection: normal respiratory effort and able to speak in complete sentences Auscultation: bronchovesicular breath sounds Cardio Rate: regular rate Rhythm: regular rhythm Heart Sounds: S1 normal and S2 normal GI Inspection: normal to inspection Palpation: soft Back/Spine/Pelvis Back: normal to inspection and No back tenderness Skin General: no rashes or lesions noted Neuro General: alert, awake and oriented x3 Cranial Nerves: CN's II-XI intact bilaterally Cognition: normal cognition Speech: speech normal Motor: muscle tone normal throughout Extrem General: edema (vijaya le 2++) Psych Appearance: grossly normal Speech and Movement: speech and movement normal Mood: congruent mood Affect: normal affect Attitude: cooperative Thought Process: normal Thought Content: normal Judgment: judgment good Objective Labs Result Diagrams: 04/01/18 06:50 04/01/18 06:50 Labs: Laboratory Results - last 24 hr 03/31/18 04/01/18 04/01/18 15:21 06:50 06:50 WBC 9.8 RBC 4.17 Hgb 10.8 L Hct 35.5 L MCV 85.1 MCH 26.0 MCHC 30.5 RDW 17.9 H Plt Count 116 L Neut % (Auto) 71.7 Lymph % (Auto) 16.8 L [place] % (Auto) 6.3 Eos % (Auto) 4.6 H Baso % (Auto) 0.6 Neut # (Auto) 7100 H Sodium 139 Potassium 4.3 Chloride 100 Carbon Dioxide 28 BUN 53 H Creatinine 2.70 H Estimated GFR 17.4 L BUN/Creatinine Ratio 19.6 Glucose 126 H Calcium 8.9 Total Bilirubin 0.5 Conjugated Bilirubin 0.0 Unconjugated Bilirubin 0.1 AST 206 H ALT 126 H Alkaline Phosphatase 53 Total Protein 6.2 L Albumin 3.4 L Globulin 2.8 Albumin/Globulin Ratio 1.2 Urine RBC None seen Urine WBC 10-30/hpf H Ur Squamous Epith Cells 0-1 /hpf Urine Bacteria None seen Ur Culture Indicated? Specimen cultured Micro UA Comment Not Reportable Assessment & Plan Plan: Assessment/Plan Narrative: 1 Acute kidney injury on top of. Chronic kidney disease d/t obstructive uropathy will reduce the dose of the furosemide any way she is on 80 mg b.i.d. and kidney functions are worsened 2. Bladder outlet obstruction had 1000 cc of urine on bladder scanning requiring Page catheter 3 history of hypercalcemia calcium levels have been normal Time spent 25-35 minutes Quality VTE Deep Vein Thrombosis/Pulmonary Embolism Present on Admission: No
[2018-04-01] MEDS: FUROSEMIDE 40 MG TABLET PO (21:22)
[2018-04-02] VITALS (11 sets, daily range): BP systolic 102–137; BP diastolic 66–85; PULSE 60–68; RESP 16–18; TEMP 36.3–37; O2SAT 84–94
[2018-04-02] MEDS: ACETAMINOPHEN 325 MG TABLET 650 MG PO ×3 (02:42→18:29)
[2018-04-02 05:48] LABS: Add Manual Diff / Slide Review NO; Basophils Percent Auto 0.6 % (0-2); Hematocrit 34.5 % (36-46); Hemoglobin 10.5 g/dL (12.0-16.0); Lymphocytes Percent Auto 18.7 % (25-40); Mean Corpuscular HGB Conc 30.5 % (30-36); Mean Corpuscular Hemoglobin 25.9 PG (26-34); Mean Corpuscular Volume 84.8 fL (80-100); Monocytes Percent Auto 6.3 % (3-14); Neutrophils Absolute Auto 7800 /uL (3000-5900); Neutrophils Percent Auto 70.4 % (50-75); Platelet Count 107 X10^3/uL (150-400); Red Blood Cell Count 4.07 X10^6/uL (4.0-5.2); Red Cell Distribution Width 17.9 % (11.6-14.8); White Blood Cell Count 11.1 X10^3/uL (4.5-11.0)
[2018-04-02 05:50] LABS: BUN Creatinine Ratio 16.9 (6-22); Blood Urea Nitrogen 49 mg/dL (7-17); Calcium 8.8 mg/dL (8.4-10.2); Carbon Dioxide 27 mmol/L (22-32); Chloride 99 mmol/L (98-107); Glucose 122 mg/dL (80-110); HEMOLYSIS < 15 (0-50); Potassium 4.5 mmol/L (3.4-5.1); Sodium 139 mmol/L (137-145)
[2018-04-02] MEDS: PANTOPRAZOLE 40 MG TABLET PO (07:10)
[2018-04-02] MEDS: AMLODIPINE 2.5 MG TABLET PO (08:30)
[2018-04-02] MEDS: ALLOPURINOL 100 MG TABLET PO (08:30)
[2018-04-02] MEDS: METOPROLOL ER 50 MG TABLET 100 MG PO (08:31)
[2018-04-02] MEDS: LORATADINE 10 MG TABLET PO (08:31)
[2018-04-02] MEDS: ASPIRIN EC 81 MG TABLET PO (08:31)
[2018-04-02] MEDS: POTASSIUM CHLORIDE 20 MEQ TAB PO (08:31)
[2018-04-02] MEDS: FUROSEMIDE 40 MG TABLET PO (08:31)
[2018-04-02] MEDS: levETIRAcetam 250 MG TABLET 500 MG PO ×2 (08:31→20:57)
[2018-04-02] MEDS: INSULIN ASPART 100 UNIT/ML INSULN PEN SUBCUT ×3 (08:32→17:13)
[2018-04-02] MEDS: VENLAFAXINE ER 37.5 MG CAP PO (08:32)
--- NOTE | 2018-04-02 14:18 | PT.IIE ---
Current Diagnoses Heart failure, unspecified (03/31/18) Surgical History (Last Reviewed 03/31/18 @ 16:48 by Kehinde Estrada MD) History of appendectomy (Acute ~1953) History of left knee surgery (Acute ~2016) LAP-BAND surgery status (Acute ~2003) Medical History (Last Updated 03/31/18 @ 16:52 by Wayne Larry RN) Cardiac defibrillator in place (Acute ~01/15/17) Chronic arthritis (Acute) Congestive heart failure (CHF) (Acute) Fractured patella (Acute) Fusion of lumbar spine (Acute ~2008) HTN (hypertension) (Acute) History of hysterectomy (Acute ~1989) Hyperlipemia (Acute) Pacemaker (Acute ~12/16/15) Renal failure (Acute) Seizures (Acute) Stress incontinence in female (Acute) Stroke (Acute) Type 2 diabetes mellitus (Acute) Weakness of right side of body (Acute) Physical Therapy Inpatient Evaluation/Re-Eval M1 PT/OT-IP Prior Functional Status Start: 04/02/18 15:45 Freq: NEEDED Status: Active Protocol: Document 04/02/18 13:40 MDD (Rec: 04/02/18 16:00 MDD [id number]) Medical Review Prior Functional Status Medical History Reviewed Yes Communication normal Mobility and Gait [facility] , reports she was ambulating short distance with FWW with assist. Required one person assist for bed mobility. Activities of Daily Living and IADL's Assist required for showering, dressing etc. Social History Household Members spouse family Living Arrangements House Number of Floors (Floors) One Floor Number of Stairs To Enter/Railing? no steps to enter Home Environment High Toilet Home Equipment Front Wheel Walker Manual Wheelchair Power Wheelchair/Scooter Lift Recliner Bed Rails Grab Bars Near Toilet Grab Bars In Shower Employment Status Retired Additional Social History Comment Pt lives with her , Izaiah , and their 17 year old grandson. Reports multiple frequent falls over the last 1 -2 years. Her has had multiple cardiac surgeries, so can't assist much with mobility. M2 PT-IP Current Condition Start: 04/02/18 15:45 Freq: NEEDED Status: Active Protocol: Document 04/02/18 13:40 MDD (Rec: 04/02/18 16:00 MDD [id number]) Physical Therapy Current Condition Current Condition Evaluation Date 04/02/18 Treatment Diagnosis nausea, CHF Onset Date 03/31/18 Precautions Other Precautions farley catheter M3 PT-IP Subjective Start: 04/02/18 15:45 Freq: NEEDED Status: Active Protocol: Document 04/02/18 13:40 [facility] (Rec: 04/02/18 16:00 [facility] [id number]) Subjective Physical Therapy Visit Type Type Initial Evaluation Visit Start Time 13:40 Visit Stop Time 14:18 Total Visit Minutes 38 Notes Pt has been staying at [facility] since February 16 after progressive weakness and a fall in the home on March 15 led to hospitalization. She reports 2 falls during her stay at [facility]. The first she left the facility to get her nails done and did not bring her walker. The second was right outside (again without her walker). Pt on 3L/min supplemental oxygen at rest, O2 sats at 93% . With activity O2 sats dropped to 82% when the pulse oximeter was reading ( intermittently not working), but returned to 99% within 30 seconds seated rest. Number of SURVEYOR INSTRUMENT ASSISTANT Visits 0 Therapy Pain Assessment Pain When Pain Assessed At Rest Pain Present Pain Present Denied Pain M4 PT-IP Mobility and Gait Start: 04/02/18 15:45 Freq: NEEDED Status: Active Protocol: Document 04/02/18 13:40 [facility] (Rec: 04/02/18 16:00 [facility] [id number]) PT-Bed Mobility Assessment Rolling Type of Rolling Roll to Left Level of Assist Moderate Assistance Supine to Sit Supine to Sit Moderate Assistance Bedrails Scooting Scooting to Edge of Bed Minimal Assistance PT-Transfer Assessment Sit to and From Stand Sit to and from Stand Contact Guard Assistance Equipment Transfer Assistive Device Gait Belt Front Wheeled Walker Transfers Transfer Destination Chair Transfer Technique Stand Step Pivot Transfer Ability Level of Assist Contact Guard Assistance Gait Assessment Gait Gait Assistance Required: Contact Guard Assist Minimum Assistance Distance (Feet) (feet) 15 Assistive Devices Assistive Device Gait Belt Front Wheeled Walker Gait Deviations General Gait Pattern Decreased Stride Length Decreased Feet Clearance Flexed Trunk Step-to Gait Wide Based Gait Comments Gait Comments Pt presents with R foot drop ( previous 3 CVA's). Extremely flexed trunk and trailing from the walker. She became very dizzy with gait and needed assist to get all the way to the chair. PT-Balance Assessment Sitting Balance and Reactions Static Sitting Balance Ability Normal Dynamic Sitting Balance Ability Good Standing Balance and Reactions Static Standing Balance Ability Fair Dynamic Standing Balance Ability Fair M5 PT-IP Objective Assessments Start: 04/02/18 15:45 Freq: NEEDED Status: Active Protocol: Document 04/02/18 13:40 MDD (Rec: 04/02/18 16:00 [facility] [id number]) Orientation Orientation/Cognition Level of Alertness Alert Orientation Name Age Birthday Month Date Year Day of Week Place Situation Language Function Ability No Deficits Noted Safety Awareness Understands Safety Issues Memory Description No Deficits Noted Gross Range of Motion Lower Extremity ROM Assessment Bilaterally Impaired Impairments B knees limited to roughly 100 degrees flexion. B ankles limited to neutral. Strength Lower Extremity Strength Assessment Right Impaired Hip B hip flexion 3/5 Ankle R df 3/5, L df 4/5 Sensation Assessment Sensation Gross Sensation Right LE Impaired Light Touch Impaired Sensation Description Paresthesia Comments Sensation Comments Pt reports plantar surface of R foot feels different than left M6 PT-IP Treatment Start: 04/02/18 15:45 Freq: NEEDED Status: Active Protocol: Document 04/02/18 13:40 MDD (Rec: 04/02/18 16:00 [facility] [id number]) Physical Therapy Treatment Education Education Provided Precautions Safety M7 PT-IP Assessment and Plan Start: 04/02/18 15:45 Freq: NEEDED Status: Active Protocol: Document 04/02/18 13:40 MDD (Rec: 04/02/18 16:00 [facility] [id number]) PT Summary Assessment and Plan Potential Rehabilitation Potential Fair Status of Condition at Evaluation Evolving Summary Impairments ROM Strength Balance Bed Mobility Transfers Gait Activity Tolerance Progress Towards Goals Progressing Toward Goals Assessment Summary Pt agreeable to participate with PT evaluation this day. She requires mod A for bed mobility and appears very unsteady with gait. She has significantly decreased activity tolerance. Pt will likely benefit from returning to [facility] for continued rehabilitation for safe d/c home with her . Goals Bed Mobility Goal Minimal Assistance Transfer Goal Standby Assistance Gait Goal Standby Assistance Gait Distance 30 Days to Meet Goals 3 Frequency of Treatment Frequency Of Treatment Once a Day Treatment Plan Physical Therapy Treatment Plan Bed Mobility Training Transfer Training Gait Training Therapeutic Exercise Recommendations To Nursing Amount of Assist Needed 1 Person Assist Discharge Recommendations PT Discharge Recommendations SNF Rehab
[2018-04-02] MEDS: GABAPENTIN 300 MG CAPSULE PO (17:16)
[2018-04-02] MEDS: ROSUVASTATIN 10 MG TABLET 5 MG PO (17:16)
[2018-04-02] MEDS: SODIUM CHLORIDE 0.9% 250 ML 21 ML IV (17:18)
[2018-04-02] MEDS: LINEZOLID 600 MG/300 ML IV.SOLN IV (17:18)
--- NOTE | 2018-04-02 20:19 | P.PN_ITS ---
Subjective Date Patient Seen: 04/02/18 Time Patient Seen: 11:20 Interval history: This is a 72-year-old female with complex medical problems presenting with acute kidney injury secondary to dehydration/volume depletion No events since admission, overall reports ongoing clinical improvement though still with persistent acute on chronic renal failure, presents with no new complaints as of this morning. Exam Vital Signs (past 8 hours): - 04/02/18 12:14 04/02/18 15:50 04/02/18 19:33 Temperature 98.4 F 98.6 F Pulse Rate 67 65 Respiratory Rate 16 18 Blood Pressure 137/85 H 114/68 Pulse Oximetry 93 92 94 Oxygen Delivery Method Nasal Cannula Oxygen Flow Rate 3.5 Narrative Exam Narrative: Constitutional: Well-nourished well-developed female in no apparent distress she is alert and appears to be mildly confused HEENT: Unremarkable exam Eyes: PERRLA, EOMI Neck: Supple, no lymphadenopathy, no jugular venous distention Pulmonary: Clear to auscultation bilaterally Cardiovascular: Regular rhythm rate, no murmurs Gastrointestinal: Abdomen is soft, nontender, nondistended, bowel sounds present, no discernible organomegaly Extremities: Warm to touch, no edema Skin: Warm, well perfused, no skin rashes, no lesions Objective Labs Result Diagrams: 04/02/18 05:15 04/02/18 05:15 Labs: Laboratory Results - last 24 hr 04/02/18 04/02/18 05:15 05:15 WBC 11.1 H RBC 4.07 Hgb 10.5 L Hct 34.5 L MCV 84.8 MCH 25.9 L MCHC 30.5 RDW 17.9 H Plt Count 107 L Neut % (Auto) 70.4 Lymph % (Auto) 18.7 L [place] % (Auto) 6.3 Eos % (Auto) 4.0 Baso % (Auto) 0.6 Neut # (Auto) 7800 H Sodium 139 Potassium 4.5 Chloride 99 Carbon Dioxide 27 BUN 49 H Creatinine 2.90 H Estimated GFR 16.0 L BUN/Creatinine Ratio 16.9 Glucose 122 H Calcium 8.8 Assessment & Plan Plan: Assessment/Plan Narrative: 1. Acute on chronic renal failure: Persist/slowly progressing. Creatinine level on admission at 2.4, today at 2.9 with estimated GFR trending down from 19.9 on admission to 16.0. Hold nephrotoxin medications, request renal ultrasound, continue careful IV hydration, follow up with repeat labs, if no improvement, consider Nephrology consultation. 2. Diabetes mellitus, Type 2: Currently with acceptable blood glucose control 3. Peripheral neuropathy: Continue gabapentin at outpatient dose 4. Congestive heart failure, chronic, diastolic: Appears to be controlled, management as above 5. Troponin elevation: Mild, most probable secondary to stress cardiomyopathy in setting of acute on chronic renal failure. Continue current therapy previous aspirin and statins. Quality VTE Deep Vein Thrombosis/Pulmonary Embolism Present on Admission: No
[2018-04-02] MEDS: SODIUM CHLORIDE 0.9% 1,000 ML 75 ML IV (20:58)
[2018-04-02] MEDS: SODIUM CHLORIDE 0.9% FLUSH 10 ML IV (20:58)
[2018-04-03] VITALS (9 sets, daily range): BP systolic 105–129; BP diastolic 65–83; PULSE 53–60; RESP 16–18; TEMP 36.4–36.9; O2SAT 86–98
--- NOTE | 2018-04-03 | DI.US.S_ITS ---
PROCEDURE: Renal ultrasound. INDICATIONS: non pitting edema of LEs, r/u Dvt TECHNIQUE: Real time scanning was performed of the lower extremity venous system, with imaging documentation, as well as Color and pulse Doppler interrogation. COMPARISON: None. FINDINGS: No hydronephrosis bilaterally. No renal calculi nor cysts. No solid masses. Right kidney measures 12.7 cm. Left kidney measures 12.1 cm. Right renal cortical thickness is 1.6 cm. Left renal cortical thickness is 1.8 mm. A Page catheter is present within the urinary bladder. IMPRESSION: No hydronephrosis. Dictated by: Ham Washington M.D. on 04/03/2018 at 16:25 Approved by: Ham Washington M.D. on 04/03/2018 at 16:26
--- NOTE | 2018-04-03 | DI.ECHO.S_ITS ---
[facility]+ [facility] +---------+ : : [address] : : : : [id number] : : : : Phone: [phone]+ Echocardiogram Report + + :Name: YAYA MARTINEZ Study Date: 04/04/2018 Height: 65 in : :[facility] Exam Location: [facility] Weight: 252 lb : : Gender: Female BSA: 2.2 m2 : :: 1945 Age: 72 yrs BP: 138/90 mmHg: :Reason For Study: CHF PULM HTN : : Performed By: Sofie Pacheco : :Referring: Lebron Isaac M.D. : + + Interpretation Summary Left ventricular systolic function is normal with the ejection fraction grossly estimated to be 60-65% although with a significant dyssynchronous contraction pattern, consistent with a conduction abnormality or paced rhythm but no other obvious focal wall motion abnormalities. There is moderate concentric left ventricular hypertrophy that appears more prominent apically, raising the question for a possible apical variant hypertrophic cardiomyopathy. Left ventricular cavity size is relatively small with a probable mild intracavitary pressure gradient. Diastolic function could not be accurately assessed due to contradictory data but filling pressures are likely elevated. The right ventricle is moderately dilated and right ventricular systolic function is moderately reduced. There is severe pulmonary hypertension with the right ventricular systolic pressure estimated at 71 mmHg assuming a right atrial pressure of 15 mm Hg. The left atrium is moderately dilated and the right atrium is severely dilated. There is severe tricuspid regurgitation and moderate pulmonic regurgitation but no other significant valvular heart disease. The ascending aorta is mildly enlarged. Procedure: A two-dimensional transthoracic echocardiogram with color flow and Doppler was performed. The study quality was technically difficult. There is no prior echocardiogram noted for this patient. The patient had a bundle branch block rhythm during the exam. The patient had frequent PVCs during the exam. Left Ventricle: There is moderate concentric left ventricular hypertrophy. It appears more prominent apically, raising question of a possible apical variant hypertrophic cardiomyopathy. Left ventricular cavity size is relatively small with a probable mild intracavitary pressure gradient. Left ventricular systolic function is normal. The ejection fraction is estimated to be 60-65%. There is a significant dyssynchronous contraction pattern, consistent with a conduction abnormality. There are no other obvious focal wall motion abnormalities. Diastolic function could not be accurately assessed due to contradictory data. Right Ventricle: The right ventricle is moderately dilated. There is a pacemaker lead in the right ventricle. Right ventricular systolic function is moderately reduced. Atria: The left atrium is moderately dilated. The right atrium is severely dilated. There is a catheter/pacemaker lead seen in the right atrium. There is no Doppler evidence for an interatrial shunt. Mitral Valve: There is moderate mitral annular calcification. There is trace mitral regurgitation. Aortic Valve: There is mild aortic valve sclerosis. The aortic valve opens well. No aortic regurgitation is present. Tricuspid Valve: The tricuspid valve is normal. There is severe tricuspid regurgitation. There is severe pulmonary hypertension. The right ventricular systolic pressure is estimated at 71 mmHg assuming a right atrial pressure of 15 mm Hg. Pulmonic Valve: The pulmonic valve leaflets are thin and pliable; valve motion is normal. There is moderate pulmonic regurgitation. There is no other significant valvular heart disease. Great Vessels: The aortic root is normal size. The ascending aorta is mildly enlarged. The aortic arch could not be visualized. The pulmonary is not well visualized. The IVC is dilated (diameter is greater than 2.1 cm) and it collapses less than 50% with a sniff. This suggests a high right atrial pressure of 15 mm Hg. Pericardium/ Pleura There is no pericardial effusion. There is no pleural effusion. MMode/2D Measurements & Calculations LVIDd: 5.0 cm LVOT diam: 2.2 cm LVIDs: 3.2 cm Ao root diam: 3.8 cm FS: 36.6 % asc Aorta Diam: 3.9 cm EPSS: 0.33 cm IVSd: 1.3 cm LVPWd: 1.1 cm LV carrasco. diameter/BSA (cm/m^2): 2.3 LV sys. diameter/BSA (cm/m^2): 1.5 LA A2 area: 29.8 cm2 RA long axis: 6.8 cm LA A4 area: 26.5 cm2 RA area: 35.9 cm2 LA length (vol): 6.7 cm RA vol: 161.7 ml LA vol: 99.6 ml RA : 74.1 ml/m2 LA vol index: 45.7 ml/m2 IVC diam: 3.2 cm RVD1 (basal): 5.8 cm RVD2 (mid): 5.9 cm TAPSE: 2.4 cm Doppler Measurements & Calculations Ao V2 max: 203.2 cm/sec MV E max saqib: 92.9 cm/sec Ao V2 mean: 134.7 cm/sec MV A max saqib: 108.3 cm/sec Ao max P.6 mmHg MV E/A: 0.86 Ao mean P.6 mmHg Med Peak E' Saqib: 3.3 cm/sec Ao V2 VTI: 33.6 cm E/E' med: 28.2 Lat Peak E' Saqib: 4.7 cm/sec E/E' lat: 19.6 E/e' average: 23.9 MV dec time: 0.24 sec MV P1/2t: 69.8 msec TR max saqib: 374.4 cm/sec MV P1/2t max saqib: 93.1 cm/sec TR max P.1 mmHg MVA(P1/2t): 3.2 cm2 PA V2 max: 77.6 cm/sec PA V2 mean: 49.8 cm/sec PA mean P.1 mmHg PA pr(Accel): 59.0 mmHg Reading Physician:PM
[2018-04-03] MEDS: LINEZOLID 600 MG/300 ML IV.SOLN IV ×2 (05:16→17:17)
[2018-04-03] MEDS: PANTOPRAZOLE 40 MG TABLET PO (05:55)
[2018-04-03 05:59] LABS: Add Manual Diff / Slide Review NO; Basophils Percent Auto 0.6 % (0-2); Eosinophils Percent Auto 7.8 % (2-4); Hematocrit 33.8 % (36-46); Hemoglobin 10.6 g/dL (12.0-16.0); Mean Corpuscular HGB Conc 31.3 % (30-36); Mean Corpuscular Hemoglobin 26.3 PG (26-34); Mean Corpuscular Volume 84.2 fL (80-100); Monocytes Percent Auto 7.1 % (3-14); Neutrophils Absolute Auto 5400 /uL (3000-5900); Neutrophils Percent Auto 64.5 % (50-75); Platelet Count 112 X10^3/uL (150-400); Red Blood Cell Count 4.02 X10^6/uL (4.0-5.2); Red Cell Distribution Width 17.9 % (11.6-14.8); White Blood Cell Count 8.4 X10^3/uL (4.5-11.0)
[2018-04-03 06:02] LABS: BUN Creatinine Ratio 19.2 (6-22); Blood Urea Nitrogen 46 mg/dL (7-17); Calcium 7.9 mg/dL (8.4-10.2); Carbon Dioxide 30 mmol/L (22-32); Chloride 98 mmol/L (98-107); Estimated Glomerular Filt Rate 19.9 mL/min (>60); Glucose 133 mg/dL (80-110); HEMOLYSIS < 15 (0-50); Magnesium 1.5 mg/dL (1.6-2.3); Potassium 3.9 mmol/L (3.4-5.1); Sodium 138 mmol/L (137-145)
--- NOTE | 2018-04-03 06:48 | PC.NURSE ---
Student Support Advisor Note: Pt desating occasionally while sleeping. RT notified and here to assess pt. O2 sats drop to 86% and return to 91-92%. Pt remains on O2 via heated high flow nasal cannula. She has NS infusing at 75cc/hr X 1liter. Vital signs stable. Remains on telemetry. No ectopy reported by ICU.
[2018-04-03] MEDS: INSULIN ASPART 100 UNIT/ML INSULN PEN SUBCUT ×3 (08:27→17:14)
[2018-04-03] MEDS: ASPIRIN EC 81 MG TABLET PO (08:28)
[2018-04-03] MEDS: ALLOPURINOL 100 MG TABLET PO (08:28)
[2018-04-03] MEDS: AMLODIPINE 2.5 MG TABLET PO (08:28)
[2018-04-03] MEDS: METOPROLOL ER 50 MG TABLET 100 MG PO ×2 (08:29→20:11)
[2018-04-03] MEDS: levETIRAcetam 250 MG TABLET 500 MG PO ×2 (08:29→20:11)
[2018-04-03] MEDS: LORATADINE 10 MG TABLET PO (08:29)
[2018-04-03] MEDS: POTASSIUM CHLORIDE 20 MEQ TAB PO (08:30)
[2018-04-03] MEDS: MAGNESIUM HYDROXIDE 30 ML UDC PO (08:42)
[2018-04-03] MEDS: ACETAMINOPHEN 325 MG TABLET 650 MG PO ×2 (08:43→18:17)
[2018-04-03] MEDS: SODIUM CHLORIDE 0.9% FLUSH 10 ML IV ×2 (10:21→20:11)
--- NOTE | 2018-04-03 12:05 | PT.IPTN ---
Current Diagnoses Heart failure, unspecified (03/31/18) Physical Therapy Treatment Note M2 PT-IP Current Condition Start: 04/02/18 15:45 Freq: NEEDED Status: Active Protocol: Document 04/02/18 13:40 MDD (Rec: 04/02/18 16:00 MDD [id number]) Physical Therapy Current Condition Current Condition Evaluation Date 04/02/18 Treatment Diagnosis nausea, CHF Onset Date 03/31/18 Precautions Other Precautions farley catheter M3 PT-IP Subjective Start: 04/02/18 15:45 Freq: NEEDED Status: Active Protocol: Document 04/03/18 12:05 RCC (Rec: 04/03/18 13:02 RCC [id number]) Subjective Physical Therapy Visit Type Type Treatment Note Visit Start Time 11:40 Visit Stop Time 12:05 Total Visit Minutes 25 Notes contact precautions Number of IT TECHNICAL SUPPORT SPECIALIST Visits 0 Physical Therapy Visit Comments Patient Comments pt willing to get up to chair, notes that she really wants to be able to d/c home Therapy Pain Assessment Pain Present Pain Present Denied Pain M4 PT-IP Mobility and Gait Start: 04/02/18 15:45 Freq: NEEDED Status: Active Protocol: Document 04/03/18 12:05 RCC (Rec: 04/03/18 13:02 RCC [id number]) PT-Bed Mobility Assessment Rolling Type of Rolling Roll to Right Level of Assist Moderate Assistance Supine to Sit Supine to Sit Moderate Assistance Bedrails Scooting Scooting to Edge of Bed Standby Assistance PT-Transfer Assessment Sit to and From Stand Sit to and from Stand Contact Guard Assistance Equipment Transfer Assistive Device Gait Belt Front Wheeled Walker Transfers Transfer Destination Chair Transfer Technique Stand Step Pivot Transfer Ability Level of Assist Standby Assistance Gait Assessment Gait Gait Assistance Required: Contact Guard Assist Minimum Assistance Distance (Feet) (feet) 25 Assistive Devices Assistive Device Gait Belt Front Wheeled Walker Gait Deviations General Gait Pattern Decreased Stride Length Decreased Feet Clearance Flexed Trunk Lateral Trunk Lean Step-to Gait Wide Based Gait Comments Gait Comments O2 saturation 88-93% on 4-L O2 during session, HR <70 bpm PT-Balance Assessment Sitting Balance and Reactions Static Sitting Balance Ability Normal Dynamic Sitting Balance Ability Good Standing Balance and Reactions Static Standing Balance Ability Fair Dynamic Standing Balance Ability Fair Device Used FWW M5 PT-IP Objective Assessments Start: 04/02/18 15:45 Freq: NEEDED Status: Active Protocol: Document 04/02/18 13:40 MDD (Rec: 04/02/18 16:00 [facility] [id number]) Orientation Orientation/Cognition Level of Alertness Alert Orientation Name Age Birthday Month Date Year Day of Week Place Situation Language Function Ability No Deficits Noted Safety Awareness Understands Safety Issues Memory Description No Deficits Noted Gross Range of Motion Lower Extremity ROM Assessment Bilaterally Impaired Impairments B knees limited to roughly 100 degrees flexion. B ankles limited to neutral. Strength Lower Extremity Strength Assessment Right Impaired Hip B hip flexion 3/5 Ankle R df 3/5, L df 4/5 Sensation Assessment Sensation Gross Sensation Right LE Impaired Light Touch Impaired Sensation Description Paresthesia Comments Sensation Comments Pt reports plantar surface of R foot feels different than left M6 PT-IP Treatment Start: 04/02/18 15:45 Freq: NEEDED Status: Active Protocol: Document 04/02/18 13:40 MDD (Rec: 04/02/18 16:00 [facility] [id number]) Physical Therapy Treatment Education Education Provided Precautions Safety M7 PT-IP Assessment and Plan Start: 04/02/18 15:45 Freq: NEEDED Status: Active Protocol: Document 04/03/18 12:05 RCC (Rec: 04/03/18 13:02 RCC [id number]) PT Summary Assessment and Plan Summary Progress Towards Goals Progressing Toward Goals Assessment Summary Pt still requires assistance getting OOB, and fatigues quickly with LE weakness with gait. Pt is motivated to return home, but will need to continue to progress with mobility in order for that to be a safe plan. Recommend continued skilled physical therapy in hospital setting to continue to progress toward goals, and likely will need CG training to see if level of care from family is feasible. Goals Bed Mobility Goal Minimal Assistance Transfer Goal Standby Assistance Gait Goal Standby Assistance Gait Distance 30 Days to Meet Goals 3 Frequency of Treatment Frequency Of Treatment Once a Day Treatment Plan Physical Therapy Treatment Plan Bed Mobility Training Transfer Training Gait Training Therapeutic Exercise Other Recommendations and Next Treatment prog. gait, bed mobility, CG Focus training prior to d/c. Recommendations To Nursing Amount of Assist Needed 1 Person Assist Discharge Recommendations PT Discharge Recommendations Home with 24/7 Assist Home Health SNF Rehab Other Discharge Recommendations home with 24/7 and HH vs. SNF- requires ongoing assessment.
--- NOTE | 2018-04-03 12:29 | PC.NURSE ---
AM NOTE - alert, mildly sob w/speech, 02 sat 92-94% 3L, bs w/coarse crackles mid lobes, farley w/clear yellow urine, some r shoulder discomfort and given 650mg po tylenol and ice packs that resolved, scattered healing bruises vijaya ue, hands and l torso, back and thigh, later am phys therapy in, 02 90% rest, incr to 4L and pt able stand and ambul to chair w/fww, sat remaining 90-92%
--- NOTE | 2018-04-03 12:42 | PM.PN.1 ---
Subjective Date Patient Seen: 04/03/18 Time Patient Seen: 12:20 Interval history: This is a 72-year-old female with complex medical problems presenting with acute kidney injury secondary to dehydration/volume depletion, acute MRSA UTI No events since admission, overall reports ongoing clinical improvement , with no new complaints as of this morning. Exam Vital Signs (past 8 hours): - 04/03/18 05:41 04/03/18 08:00 04/03/18 09:00 Temperature 97.5 F L 98 F Pulse Rate 60 58 L Respiratory Rate 18 18 Blood Pressure 126/77 H 123/75 H Pulse Oximetry 96 98 92 04/03/18 12:28 Temperature Pulse Rate Respiratory Rate Blood Pressure Pulse Oximetry 92 Oxygen Delivery Method Room Air Oxygen Flow Rate 4 Narrative Exam Narrative: Constitutional: well-developed , obese female in no apparent distress ;she is alert and oriented x 3 HEENT: Unremarkable exam Eyes: PERRLA, EOMI Neck: Supple, no lymphadenopathy, no jugular venous distention Pulmonary: distant breath sounds, decreased at bases , with no obvious rales, crepitations or wheezing detected Cardiovascular: distant heart sounds, regular rhythm rate, no murmurs Gastrointestinal: Abdomen is soft, nontender, nondistended, bowel sounds present, no discernible organomegaly Extremities: Warm to touch, with chronic non pitting edema Skin: Warm, well perfused, no skin rashes, no lesions Objective Imaging Chest x-ray: Radiologist's impression: IMPRESSION: #1. Mild cardiomegaly. #2. Enlargement of the bilateral kinga and pulmonary vasculature which may represent a sequela of pulmonary arterial hypertension or hilar lymphadenopathy. #3. Bibasilar atelectasis. Dictated by: Kevyn Palm M.D. on 03/31/2018 at 13:27 Approved by: Kevyn Palm M.D. on 03/31/2018 at 13:31 CT scan - head: Radiologist's impression: IMPRESSION: #1. No acute intracranial hemorrhage. #2. 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 Superimposed acute infarct in this region is difficult to exclude. Consider followup brain MRI if there is continued clinical concern for acute infarct. #3. Punctate foci of air within and surrounding the left pterygoid muscles and adjacent to the left cavernous internal carotid artery, which are of uncertain clinical significance. Dictated by: Kevyn Palm M.D. on 03/31/2018 at 13:35 Approved by: Kevyn Palm M.D. on 03/31/2018 at 13:44 Labs Result Diagrams: 04/03/18 05:25 04/03/18 05:25 Labs: Laboratory Results - last 24 hr 04/03/18 04/03/18 05:25 05:25 WBC 8.4 RBC 4.02 Hgb 10.6 L Hct 33.8 L MCV 84.2 MCH 26.3 MCHC 31.3 RDW 17.9 H Plt Count 112 L Neut % (Auto) 64.5 Lymph % (Auto) 20.0 L [place] % (Auto) 7.1 Eos % (Auto) 7.8 H Baso % (Auto) 0.6 Neut # (Auto) 5400 Sodium 138 Potassium 3.9 Chloride 98 Carbon Dioxide 30 BUN 46 H Creatinine 2.40 H Estimated GFR 19.9 L BUN/Creatinine Ratio 19.2 Glucose 133 H Calcium 7.9 L Magnesium 1.5 L Assessment & Plan Plan: Assessment/Plan Narrative: 1. Acute on chronic renal failure: slowly progressing. Creatinine level on admission at 2.4, increased to 2.9 and after careful IBV hydration returned back to 2.4 Hold nephrotoxic medications, pending renal ultrasound, follow up with repeat labs . IV vancomycin was replaced by linezolid to reduce nephrotoxicity of this medication 2. Diabetes mellitus, Type 2: Currently with acceptable blood glucose control, continue current insulin management. 3. Peripheral neuropathy: Continue gabapentin at outpatient dose 4. Congestive heart failure, chronic, diastolic: Appears to be controlled, management as above. Requesting interval echocardiogram. 5. Troponin elevation: Mild, most probable secondary to stress cardiomyopathy in setting of acute on chronic renal failure. Continue current therapy previous aspirin and statins. 6. MRSA urinary tract infection: Clinically resolving. Continue current IV antibiotic therapy with linezolid 7. Nonpitting edema lower extremities: Possibly multifactorial. Discontinue treatment with Norvasc on suspicion of fluid retention in lower extremities caused by calcium channel blockers. Request venous Doppler to rule out possible to avoid DVT. Time Spent With Patient Time with patient: 25 - 35 minutes Quality VTE Deep Vein Thrombosis/Pulmonary Embolism Present on Admission: No
[2018-04-03] MEDS: GABAPENTIN 300 MG CAPSULE PO (17:17)
[2018-04-03] MEDS: ROSUVASTATIN 10 MG TABLET 5 MG PO (17:17)
[2018-04-03] MEDS: SODIUM CHLORIDE 0.9% 250 ML 100 ML IV (17:31)
[2018-04-04] VITALS (14 sets, daily range): BP systolic 116–140; BP diastolic 52–85; PULSE 50–65; RESP 15–20; TEMP 36.4–36.8; O2SAT 89–98
[2018-04-04] MEDS: LINEZOLID 600 MG/300 ML IV.SOLN 300 MG IV ×2 (05:27→17:20)
[2018-04-04] MEDS: PANTOPRAZOLE 40 MG TABLET PO (05:27)
[2018-04-04 08:26] LABS: Add Manual Diff / Slide Review NO; Basophils Percent Auto 0.6 % (0-2); Eosinophils Percent Auto 5.7 % (2-4); Hematocrit 34.7 % (36-46); Hemoglobin 10.7 g/dL (12.0-16.0); Lymphocytes Percent Auto 18.4 % (25-40); Mean Corpuscular HGB Conc 30.9 % (30-36); Mean Corpuscular Hemoglobin 25.4 PG (26-34); Mean Corpuscular Volume 82.3 fL (80-100); Monocytes Percent Auto 7.7 % (3-14); Neutrophils Absolute Auto 6500 /uL (3000-5900); Neutrophils Percent Auto 67.6 % (50-75); Platelet Count 125 X10^3/uL (150-400); Red Blood Cell Count 4.22 X10^6/uL (4.0-5.2); Red Cell Distribution Width 17.9 % (11.6-14.8); White Blood Cell Count 9.7 X10^3/uL (4.5-11.0)
[2018-04-04] MEDS: INSULIN ASPART 100 UNIT/ML INSULN PEN SUBCUT ×3 (08:37→17:17)
[2018-04-04 08:38] LABS: Blood Urea Nitrogen 40 mg/dL (7-17); Calcium 8.9 mg/dL (8.4-10.2); Carbon Dioxide 30 mmol/L (22-32); Chloride 99 mmol/L (98-107); Estimated Glomerular Filt Rate 24.6 mL/min (>60); Glucose 134 mg/dL (80-110); HEMOLYSIS < 15 (0-50); Magnesium 1.9 mg/dL (1.6-2.3); Potassium 4.2 mmol/L (3.4-5.1); Sodium 138 mmol/L (137-145)
[2018-04-04] MEDS: ALBUTEROL HFA 60 PUFF/8 GM INH INH (09:08)
[2018-04-04] MEDS: POTASSIUM CHLORIDE 20 MEQ TAB PO (09:43)
[2018-04-04] MEDS: ALLOPURINOL 100 MG TABLET PO (09:44)
[2018-04-04] MEDS: levETIRAcetam 250 MG TABLET 500 MG PO ×2 (09:44→22:02)
[2018-04-04] MEDS: ACETAMINOPHEN 325 MG TABLET 650 MG PO ×2 (09:44→17:21)
[2018-04-04] MEDS: ASPIRIN EC 81 MG TABLET PO (09:44)
[2018-04-04] MEDS: METOPROLOL ER 50 MG TABLET 100 MG PO ×2 (09:44→22:03)
[2018-04-04] MEDS: SODIUM CHLORIDE 0.9% FLUSH 10 ML IV ×2 (09:45→22:03)
--- NOTE | 2018-04-04 14:38 | PM.PN.1 ---
Subjective Date Patient Seen: 04/04/18 Time Patient Seen: 13:00 Interval history: This is a 72-year-old female with complex medical problems presenting with acute kidney injury secondary to dehydration/volume depletion, acute MRSA UTI No events since admission, overall reports ongoing clinical improvement , with no new complaints as of this morning, remains on 02 support via NC at 4-6 l/min. Exam Vital Signs (past 8 hours): - 04/04/18 08:00 04/04/18 08:33 04/04/18 10:47 Temperature 98 F Pulse Rate 56 L 58 L Respiratory Rate 20 20 Blood Pressure 121/61 H Pulse Oximetry 91 93 89 L 04/04/18 10:53 04/04/18 12:00 Temperature 98 F Pulse Rate 65 Respiratory Rate 18 Blood Pressure 140/62 H Pulse Oximetry 94 95 Oxygen Delivery Method High Flow Nasal Cannula Oxygen Flow Rate 4 Narrative Exam Narrative: Constitutional: well-developed , obese female in no apparent distress ;she is alert and oriented x 3 HEENT: Unremarkable exam Eyes: PERRLA, EOMI Neck: Supple, no lymphadenopathy, no jugular venous distention Pulmonary: distant breath sounds, decreased at bases , with no obvious rales, crepitations or wheezing detected Cardiovascular: distant heart sounds, regular rhythm rate, no murmurs Gastrointestinal: Abdomen is soft, nontender, nondistended, bowel sounds present, no discernible organomegaly Extremities: Warm to touch, with chronic non pitting edema Skin: Warm, well perfused, no skin rashes, no lesions Objective Imaging Echocardiogram: Radiologist's impression: Interpretation Summary Left ventricular systolic function is normal with the ejection fraction grossly estimated to be 60-65% although with a significant dyssynchronous contraction pattern, consistent with a conduction abnormality or paced rhythm but no other obvious focal wall motion abnormalities. There is moderate concentric left ventricular hypertrophy that appears more prominent apically, raising the question for a possible apical variant hypertrophic cardiomyopathy. Left ventricular cavity size is relatively small with a probable mild intracavitary pressure gradient. Diastolic function could not be accurately assessed due to contradictory data but filling pressures are likely elevated. The right ventricle is moderately dilated and right ventricular systolic function is moderately reduced. There is severe pulmonary hypertension with the right ventricular systolic pressure estimated at 71 mmHg assuming a right atrial pressure of 15 mm Hg. The left atrium is moderately dilated and the right atrium is severely dilated. There is severe tricuspid regurgitation and moderate pulmonic regurgitation but no other significant valvular heart disease. Reading Physician:PM Chest x-ray: Radiologist's impression: IMPRESSION: #1. Mild cardiomegaly. #2. Enlargement of the bilateral kinga and pulmonary vasculature which may represent a sequela of pulmonary arterial hypertension or hilar lymphadenopathy. #3. Bibasilar atelectasis. Dictated by: Kevyn Palm M.D. on 03/31/2018 at 13:27 Approved by: Kevyn Palm M.D. on 03/31/2018 at 13:31 Labs Result Diagrams: 04/04/18 07:50 04/04/18 07:50 Labs: Laboratory Results - last 24 hr 04/04/18 04/04/18 07:50 07:50 WBC 9.7 RBC 4.22 Hgb 10.7 L Hct 34.7 L MCV 82.3 MCH 25.4 L MCHC 30.9 RDW 17.9 H Plt Count 125 L Neut % (Auto) 67.6 Lymph % (Auto) 18.4 L [place] % (Auto) 7.7 Eos % (Auto) 5.7 H Baso % (Auto) 0.6 Neut # (Auto) 6500 H Sodium 138 Potassium 4.2 Chloride 99 Carbon Dioxide 30 BUN 40 H Creatinine 2.00 H Estimated GFR 24.6 L BUN/Creatinine Ratio 20.0 Glucose 134 H Calcium 8.9 Magnesium 1.9 Assessment & Plan Plan: Assessment/Plan Narrative: 1. Acute on chronic renal failure: slowly resolving. Creatinine level on admission at 2.4, increased to 2.9 and after careful IV hydration decreased to 2.0 Hold nephrotoxic medications, renal ultrasound with no hydronephrosis bilaterally. No renal calculi nor cysts. No solid masses. Right kidney measures 12.7 cm. Left kidney measures 12.1 cm. Right renal cortical thickness is 1.6 cm. Left renal cortical thickness is 1.8 mm. 2. MRSA UTI: clinically resolving. IV vancomycin was replaced by linezolid to reduce nephrotoxicity of this medication 3. Diabetes mellitus, Type 2: Currently with acceptable blood glucose control, continue current insulin management. 4. Peripheral neuropathy: Continue gabapentin at outpatient dose 5. Congestive heart failure, chronic, diastolic: Appears to be controlled, management as above. Interval echocardiogram waas significant for severe pulmonary HTN with RV pressure of 71 mm Hg. Patient might benefit from referral to cardiologisgt specializing in the managment of pulmonary HTN. 5. Troponin elevation: Mild, most probable secondary to demand ischemia in setting of acute on chronic renal failure. Continue current therapy previous aspirin and statins. 6. Nonpitting edema lower extremities: Possibly multifactorial. Discontinue treatment with Norvasc on suspicion of fluid retention in lower extremities caused by calcium channel blockers. 7. Deconditioning/ debility: anticiapte need for SNF placement Time Spent With Patient Time with patient: 25 - 35 minutes Quality VTE Deep Vein Thrombosis/Pulmonary Embolism Present on Admission: No
--- NOTE | 2018-04-04 14:55 | PC.NURSE ---
AM NOTE - pt cpap removed this am and 02 sat 86%, replaced NC and sat 6l continued mid to upper 80's, bs dim, faint expir wheeze l mid lobe, RT notified and tmt provided this am, 02 delivery changed to HF cannula and sat 92-94% betwee 4-5L, chronic r shoulder discomfort and 650mg tylenol provided along with her biofreeze that helps with discomfort, continues with 3+ pedal edema, greater l than r. HR 60, later am up with FWW and ambul from bed to chair, limiting activity due to sob and fatigue. Desmond seated chair through afternoon and phys therapy ret to bed.
--- NOTE | 2018-04-04 15:48 | PT.IPTN ---
Current Diagnoses Heart failure, unspecified (03/31/18) Physical Therapy Treatment Note M2 PT-IP Current Condition Start: 04/02/18 15:45 Freq: NEEDED Status: Active Protocol: Document 04/02/18 13:40 MDD (Rec: 04/02/18 16:00 MDD [id number]) Physical Therapy Current Condition Current Condition Evaluation Date 04/02/18 Treatment Diagnosis nausea, CHF Onset Date 03/31/18 Precautions Other Precautions farley catheter M3 PT-IP Subjective Start: 04/02/18 15:45 Freq: NEEDED Status: Active Protocol: Document 04/04/18 14:30 CLB (Rec: 04/04/18 15:48 CLB [id number]) Subjective Physical Therapy Visit Type Type Treatment Note Visit Start Time 14:30 Visit Stop Time 14:45 Total Visit Minutes 15 Number of CHUTE OPERATOR Visits 1 Physical Therapy Visit Comments Patient Comments Pt willing to ambulate in room . Therapy Pain Assessment Pain Present Pain Present Denied Pain M4 PT-IP Mobility and Gait Start: 04/02/18 15:45 Freq: NEEDED Status: Active Protocol: Document 04/04/18 14:30 CLB (Rec: 04/04/18 15:48 CLB [id number]) PT-Transfer Assessment Sit to and From Stand Sit to and from Stand Minimal Assistance Equipment Transfer Assistive Device Gait Belt Front Wheeled Walker Transfers Transfer Destination Chair Transfer Ability Level of Assist Contact Guard Assistance Gait Assessment Gait Gait Assistance Required: Contact Guard Assist Minimum Assistance Distance (Feet) (feet) 20 Assistive Devices Assistive Device Gait Belt Front Wheeled Walker Gait Deviations General Gait Pattern Decreased Stride Length Decreased Feet Clearance Flexed Trunk Lateral Trunk Lean Step-to Gait Wide Based Gait Comments Gait Comments O2 saturation 86-93% on 4-L O2 during session, HR 62-70 bpm, pt needed one rest break with c/o dizziness. M5 PT-IP Objective Assessments Start: 04/02/18 15:45 Freq: NEEDED Status: Active Protocol: Document 04/02/18 13:40 MDD (Rec: 04/02/18 16:00 MDD [id number]) Orientation Orientation/Cognition Level of Alertness Alert Orientation Name Age Birthday Month Date Year Day of Week Place Situation Language Function Ability No Deficits Noted Safety Awareness Understands Safety Issues Memory Description No Deficits Noted Gross Range of Motion Lower Extremity ROM Assessment Bilaterally Impaired Impairments B knees limited to roughly 100 degrees flexion. B ankles limited to neutral. Strength Lower Extremity Strength Assessment Right Impaired Hip B hip flexion 3/5 Ankle R df 3/5, L df 4/5 Sensation Assessment Sensation Gross Sensation Right LE Impaired Light Touch Impaired Sensation Description Paresthesia Comments Sensation Comments Pt reports plantar surface of R foot feels different than left M6 PT-IP Treatment Start: 04/02/18 15:45 Freq: NEEDED Status: Active Protocol: Document 04/02/18 13:40 MDD (Rec: 04/02/18 16:00 MDD [id number]) Physical Therapy Treatment Education Education Provided Precautions Safety M7 PT-IP Assessment and Plan Start: 04/02/18 15:45 Freq: NEEDED Status: Active Protocol: Document 04/04/18 14:30 CLB (Rec: 04/04/18 15:48 CLB [id number]) PT Summary Assessment and Plan Summary Progress Towards Goals Progressing Toward Goals Assessment Summary Pt required Min A for sit- stand from chair. Pt able to ambulate 15ft before needing a rest break with complaint of dizziness. Pt continues to fatigue quickly with gait with c/o feeling weakness in her legs. Goals Bed Mobility Goal Minimal Assistance Transfer Goal Standby Assistance Gait Goal Standby Assistance Gait Distance 30 Days to Meet Goals 3 Frequency of Treatment Frequency Of Treatment Once a Day Treatment Plan Physical Therapy Treatment Plan Bed Mobility Training Transfer Training Gait Training Therapeutic Exercise Other Recommendations and Next Treatment prog. gait, bed mobility, CG Focus training prior to d/c. Recommendations To Nursing Amount of Assist Needed 1 Person Assist Discharge Recommendations PT Discharge Recommendations Home with 24/7 Assist Home Health SNF Rehab Other Discharge Recommendations home with 24/7 and vs. SNF- requires ongoing assessment.
[2018-04-04] MEDS: GABAPENTIN 300 MG CAPSULE PO ×2 (17:19)
[2018-04-04] MEDS: ROSUVASTATIN 10 MG TABLET 5 MG PO (17:20)
[2018-04-04] MEDS: HYDROCODONE/ACET 5/325 TABLET 1 TAB PO (18:41)
[2018-04-04] MEDS: HYDROCODONE/ACET 5/325 TABLET 2 TAB PO (22:02)
[2018-04-05] VITALS (12 sets, daily range): BP systolic 106–135; BP diastolic 47–92; PULSE 59–62; RESP 16–20; TEMP 36.2–36.8; O2SAT 87–100
[2018-04-05] MEDS: LINEZOLID 600 MG/300 ML IV.SOLN 300 MG IV (05:08)
[2018-04-05] MEDS: PANTOPRAZOLE 40 MG TABLET PO (05:12)
[2018-04-05 05:54] LABS: Add Manual Diff / Slide Review NO; Basophils Percent Auto 0.6 % (0-2); Eosinophils Percent Auto 6.3 % (2-4); Hematocrit 33.2 % (36-46); Hemoglobin 10.4 g/dL (12.0-16.0); Lymphocytes Percent Auto 25.7 % (25-40); Mean Corpuscular HGB Conc 31.2 % (30-36); Mean Corpuscular Hemoglobin 25.8 PG (26-34); Mean Corpuscular Volume 82.7 fL (80-100); Monocytes Percent Auto 9.6 % (3-14); Neutrophils Absolute Auto 4900 /uL (3000-5900); Neutrophils Percent Auto 57.8 % (50-75); Platelet Count 118 X10^3/uL (150-400); Red Blood Cell Count 4.01 X10^6/uL (4.0-5.2); Red Cell Distribution Width 17.8 % (11.6-14.8); White Blood Cell Count 8.5 X10^3/uL (4.5-11.0)
[2018-04-05 06:03] LABS: BUN Creatinine Ratio 21.1 (6-22); Blood Urea Nitrogen 38 mg/dL (7-17); Calcium 8.8 mg/dL (8.4-10.2); Carbon Dioxide 29 mmol/L (22-32); Chloride 100 mmol/L (98-107); Estimated Glomerular Filt Rate 27.7 mL/min (>60); Glucose 124 mg/dL (80-110); HEMOLYSIS < 15 (0-50); Magnesium 1.9 mg/dL (1.6-2.3); Potassium 4.2 mmol/L (3.4-5.1); Sodium 139 mmol/L (137-145)
[2018-04-05] MEDS: HYDROCODONE/ACET 5/325 TABLET 2 TAB PO (08:23)
[2018-04-05] MEDS: METOPROLOL ER 50 MG TABLET 100 MG PO ×2 (08:27→21:21)
[2018-04-05] MEDS: POTASSIUM CHLORIDE 20 MEQ TAB PO (08:33)
[2018-04-05] MEDS: ASPIRIN EC 81 MG TABLET PO (08:33)
[2018-04-05] MEDS: ALLOPURINOL 100 MG TABLET PO (08:33)
[2018-04-05] MEDS: levETIRAcetam 250 MG TABLET 500 MG PO ×2 (08:34→21:20)
[2018-04-05] MEDS: SODIUM CHLORIDE 0.9% FLUSH 10 ML IV ×2 (08:34→16:44)
--- NOTE | 2018-04-05 10:54 | PT.IPTN ---
Current Diagnoses Heart failure, unspecified (03/31/18) Physical Therapy Treatment Note M2 PT-IP Current Condition Start: 04/02/18 15:45 Freq: NEEDED Status: Active Protocol: Document 04/02/18 13:40 MDD (Rec: 04/02/18 16:00 MDD [id number]) Physical Therapy Current Condition Current Condition Evaluation Date 04/02/18 Treatment Diagnosis nausea, CHF Onset Date 03/31/18 Precautions Other Precautions farley catheter M3 PT-IP Subjective Start: 04/02/18 15:45 Freq: NEEDED Status: Active Protocol: Document 04/05/18 10:54 DLM (Rec: 04/05/18 13:23 DLM [id number]) Subjective Physical Therapy Visit Type Type Treatment Note Visit Start Time 10:10 Visit Stop Time 10:54 Total Visit Minutes 44 Notes contact precautions Number of PHYSICAL FITNESS TEACHER Visits 0 Physical Therapy Visit Comments Patient Comments She describes feeling tired, no dizziness this visit Therapy Pain Assessment Pain When Pain Assessed During Mobility Pain Present Pain Present Denied Pain M4 PT-IP Mobility and Gait Start: 04/02/18 15:45 Freq: NEEDED Status: Active Protocol: Document 04/05/18 10:54 DLM (Rec: 04/05/18 13:23 DLM [id number]) PT-Bed Mobility Assessment Rolling Type of Rolling Roll to Right Level of Assist Moderate Assistance Supine to Sit Supine to Sit Minimal Assistance Moderate Assistance Head of Bed Elevated Bedrails Scooting Scooting to Edge of Bed Minimal Assistance PT-Transfer Assessment Sit to and From Stand Sit to and from Stand Contact Guard Assistance Equipment Transfer Assistive Device Gait Belt Front Wheeled Walker Transfers Transfer Destination Chair Transfer Technique Stand Step Pivot Transfer Ability Level of Assist Contact Guard Assistance Comments Mobility Comments she needs additional assistance to manage her farley catheter and oxygen during mobility Gait Assessment Gait Gait Assistance Required: Contact Guard Assist Minimum Assistance Distance (Feet) (feet) 12 Assistive Devices Assistive Device Gait Belt Front Wheeled Walker Gait Deviations General Gait Pattern Decreased Stride Length Decreased Feet Clearance Wide Based Gait Factors Limiting Gait Function Factors Limiting Gait Function Decreased Activity Tolerance Decreased Strength Respiratory Distress Comments Gait Comments pt using 4 LPM oxygen, mild/ mod shortness of breath, fatigue reported, seated rest in recliner to recover PT-Balance Assessment Sitting Balance and Reactions Static Sitting Balance Ability Normal Dynamic Sitting Balance Ability Good Standing Balance and Reactions Static Standing Balance Ability Fair Dynamic Standing Balance Ability Fair Device Used with FWW M5 PT-IP Objective Assessments Start: 04/02/18 15:45 Freq: NEEDED Status: Active Protocol: Document 04/02/18 13:40 MDD (Rec: 04/02/18 16:00 MDD [id number]) Orientation Orientation/Cognition Level of Alertness Alert Orientation Name Age Birthday Month Date Year Day of Week Place Situation Language Function Ability No Deficits Noted Safety Awareness Understands Safety Issues Memory Description No Deficits Noted Gross Range of Motion Lower Extremity ROM Assessment Bilaterally Impaired Impairments B knees limited to roughly 100 degrees flexion. B ankles limited to neutral. Strength Lower Extremity Strength Assessment Right Impaired Hip B hip flexion 3/5 Ankle R df 3/5, L df 4/5 Sensation Assessment Sensation Gross Sensation Right LE Impaired Light Touch Impaired Sensation Description Paresthesia Comments Sensation Comments Pt reports plantar surface of R foot feels different than left M6 PT-IP Treatment Start: 04/02/18 15:45 Freq: NEEDED Status: Active Protocol: Document 04/05/18 10:54 DLM (Rec: 04/05/18 13:23 DLM [id number]) Physical Therapy Treatment Exercises Exercises Ankle Pumps Gluteal Sets Seated Knee Flexion/Extension Other Treatments Other Treatment Performed seated marching LE ex, exercises x 10 Bilaterally M7 PT-IP Assessment and Plan Start: 04/02/18 15:45 Freq: NEEDED Status: Active Protocol: Document 04/05/18 10:54 DLM (Rec: 04/05/18 13:23 DLM [id number]) PT Summary Assessment and Plan Summary Progress Towards Goals Slow Progress due to Medical Issues Slow Progress due to Activity Tolerance Assessment Summary She shows good effort during therapy. She continues to fatigue quickly with light activity. She is not safe to return home at this time. Recommend she discharge back to SNF rehab. Pt agrees at this time. Frequency of Treatment Frequency Of Treatment Once a Day Treatment Plan Physical Therapy Treatment Plan Bed Mobility Training Transfer Training Gait Training Therapeutic Exercise Balance Retraining Discharge Planning Other Recommendations and Next Treatment monitor oxygen needs during Focus activity, progress activity gradually due to cardiac and respiratory issues Recommendations To Nursing Amount of Assist Needed 1 Person Assist Discharge Recommendations PT Discharge Recommendations SNF Rehab Other Discharge Recommendations Pt does not have enough help at home to return at this level of care
--- NOTE | 2018-04-05 11:36 | PC.NURSE ---
Marlene states she feels better today. She has dyspnea with exertion. Lungs fairly clear. O2 on 4L/nc. Sat 92% at rest. Able to speak in complete sentences. Denies chest pain. VSS. Tele unchanged, shows paced rhythm. She asks What did my heart test show (echo)? Marlene is able to get up to chair with PT. Camilo vera'c'chuy per order. Marlene's dgtr., Lis, called and specifically asks that Hospitalist MD call Marlene's Wide Area Network Administrator in [place], Dr. Sexton for phone consult re: new Echo. Lis also wants update on her Mom's prognosis in light of new Echo. Message left with Dr. Blackwood including phone numbers.
[2018-04-05] MEDS: INSULIN ASPART 100 UNIT/ML INSULN PEN SUBCUT ×2 (12:03→16:41)
--- NOTE | 2018-04-05 15:40 | OT.IP.EVAL ---
Current Diagnoses Heart failure, unspecified (03/31/18) Past Medical History (Last Updated 03/31/18 @ 16:52 by Wayne Larry RN) Cardiac defibrillator in place (Acute ~01/15/17) Chronic arthritis (Acute) Congestive heart failure (CHF) (Acute) Fractured patella (Acute) Fusion of lumbar spine (Acute ~2008) HTN (hypertension) (Acute) History of hysterectomy (Acute ~1989) Hyperlipemia (Acute) Pacemaker (Acute ~12/16/15) Renal failure (Acute) Seizures (Acute) Stress incontinence in female (Acute) Stroke (Acute) Type 2 diabetes mellitus (Acute) Weakness of right side of body (Acute) Surgical History (Last Reviewed 03/31/18 @ 16:48 by Kehinde Estrada MD) History of appendectomy (Acute ~1953) History of left knee surgery (Acute ~2016) LAP-BAND surgery status (Acute ~2003) Occupational Therapy Inpatient Evaluation/Re-Eval M1 PT/OT-IP Prior Functional Status Start: 04/02/18 15:45 Freq: NEEDED Status: Active Protocol: Document 04/02/18 13:40 MDD (Rec: 04/02/18 16:00 MDD [id number]) Medical Review Prior Functional Status Medical History Reviewed Yes Communication normal Mobility and Gait Pt previously at [facility] , reports she was ambulating short distance with FWW with assist. Required one person assist for bed mobility. Activities of Daily Living and IADL's Assist required for showering, dressing etc. Social History Household Members spouse family Living Arrangements House Number of Floors (Floors) One Floor Number of Stairs To Enter/Railing? no steps to enter Home Environment High Toilet Home Equipment Front Wheel Walker Manual Wheelchair Power Wheelchair/Scooter Lift Recliner Bed Rails Grab Bars Near Toilet Grab Bars In Shower Employment Status Retired Additional Social History Comment Pt lives with her , Izaiah , and their 17 year old grandson. Reports multiple frequent falls over the last 1 -2 years. Her has had multiple cardiac surgeries, so can't assist much with mobility. M1 PT/OT-IP Prior Functional Status Start: 04/05/18 15:16 Freq: NEEDED Status: Active Protocol: Document 04/05/18 15:17 CCC (Rec: 04/05/18 15:40 CCC [id number]) Medical Review Prior Functional Status Medical History Reviewed Yes Communication normal Mobility and Gait Pt previously at [facility] , reports she was ambulating short distance with FWW with assist. Required one person assist for bed mobility. Activities of Daily Living and IADL's Assist required for showering, dressing at [facility]. Per prior at home able to do all ADl's, at times needing assist for socks. Social History Household Members spouse family Living Arrangements House Number of Floors (Floors) One Floor Number of Stairs To Enter/Railing? no steps to enter Home Environment High Toilet Home Equipment Front Wheel Walker Manual Wheelchair Power Wheelchair/Scooter Director Of Dietary Lift Recliner Bed Rails Grab Bars Near Toilet Grab Bars In Shower Employment Status Retired Additional Social History Comment Pt lives with her , Izaiah , and their 17 year old grandson. Reports multiple frequent falls over the last 1 -2 years. Her has had multiple cardiac surgeries, so can't assist much with mobility. M2 OT-IP Current Condition Start: 04/05/18 15:16 Freq: Status: Active Protocol: Document 04/05/18 15:17 [facility] (Rec: 04/05/18 15:40 [facility] [id number]) Occupational Therapy Current Condition Current Condition Evaluation Date 04/05/18 Treatment Diagnosis CHF Diagnosis Onset Date 03/31/18 Post Operative Precautions Other Precautions O2 on 4L M3 OT- IP Subjective and Pain Start: 04/05/18 15:16 Freq: Status: Active Protocol: Document 04/05/18 15:17 [facility] (Rec: 04/05/18 15:40 [facility] [id number]) OT- Subjective Occupational Therapy Visit Type Type Initial Evaluation Visit Start Time 14:12 Visit Stop Time 14:37 Total Visit Minutes 25 Occupational Therapy Visit Comments Patient/Caregiver Goals Pt wanting to go back to [facility] once medically stable. OT Pain Assessment Pain When Pain Assessed At Rest Pain Present Pain Present Denied Pain M4 OT- IP ADL's Start: 04/05/18 15:16 Freq: Status: Active Protocol: Document 04/05/18 15:17 [facility] (Rec: 04/05/18 15:40 [facility] [id number]) OT ADL-Grooming Comments OT Grooming Comments Able to do while sitting in recliner. OT ADL-Dressing General Eval Lower Body Dressing Ability Maximum Assistance Comments OT Dressing Comments At this time, pt would require MAX A for LB dressing needs. At home pt uses chamber walker. Currently pt's O2 level drops to 82% while just leaning forwards. OT ADL-Toileting Comments OT Toileting Comments Page just taken out and pt did not have the urge to go. M5 OT- IP IADL's Start: 04/05/18 15:16 Freq: Status: Active Protocol: Document 04/05/18 15:17 [facility] (Rec: 04/05/18 15:40 [facility] [id number]) OT-Instrumental Activities of Daily Living Medication Management Medication Management Comments Pt states does her own at home . Money Management Money Management Caregiver Provides Assistance Meal Preparation Meal Preparation Caregiver Provides Assist Bin Filler Bin Filler Caregiver Provides Assist M6 OT- IP Functional Cognition Start: 04/05/18 15:16 Freq: Status: Active Protocol: Document 04/05/18 15:17 [facility] (Rec: 04/05/18 15:40 [facility] [id number]) Cognitive Factors Limiting Selfcare Function Cognitive Ability Level of Alertness Alert Patient Orientation Name Age Birthday Month Date Year Day of Week Place Situation Attention Span Ability Capable of Focused Attention Capable of Sustained Attention Ability to Follow Commands Able to Follow Multi-Step Commands Cognitive Comments Cognitive Assessment Comments Pt able to follow 2-3 step commands. To further assess safety awareness and memory next session. OT- Vision and Hearing OT- Hearing Assessment OT- Hearing Assessment WFL OT- Vision Assessment Visual Acuity WFL M7 OT- IP Mobility and Balance Start: 04/05/18 15:16 Freq: Status: Active Protocol: Document 04/05/18 15:17 [facility] (Rec: 04/05/18 15:40 [facility] [id number]) OT-Transfer Assessment Sit to and From Stand Sit to and from Stand Maximum Assistance 1 Person Assistance Comments Mobility Comments Pt sitting in recliner and needing MAX A X1 to stand, once standing able to stand with CGA and FWW for one minute before having to sit down. Pt states has a lift chair at home and but mostly does not use it to help her to stand. M8 OT- IP Objective Assessments Start: 04/05/18 15:16 Freq: Status: Active Protocol: Document 04/05/18 15:17 [facility] (Rec: 04/05/18 15:40 [facility] [id number]) OT Gross Range of Motion Upper Extremity Range of Motion Assessment Within Functional Limits OT Strength Hand Airbrush Artist Strength Hand Dominance Left Comments Strength Comments RUE 4-/5, LUE 4/5 OT- Coordination Assessment Upper Extremity Finger to Nose Test Within Functional Limits OT-Muscle Tone Assessment Muscle Tone WNL Yes M9 OT- IP Assessment and Plan Start: 04/05/18 15:16 Freq: Status: Active Protocol: Document 04/05/18 15:17 [facility] (Rec: 04/05/18 15:40 [facility] [id number]) OT Summary Assessment and Plan Potential Rehabilitation Potential Good Analytic Complexity at Evaluation Low Summary OT Impairments Strength Balance Functional Mobility Grooming Dressing Toileting Bathing Toilet Transfers Shower Transfers Progress Towards Goals Slow Progress due to Medical Issues Slow Progress due to Activity Tolerance Assessment Summary Pt MOD complexity due to signifcant medical history and main barrier in endurance, activity tolerance and now needing assist for all ADL and functional mobility needs. Pt has had recent falls and would benefit from skilled rehab prior to going home. Pt just discharged March 11 from [facility] and had a fall on 03/15/18 . Goals Grooming Goal Standby Assistance Dressing Goal Minimal Assistance Toileting Goal Standby Assistance Bathing Goal Minimal Assistance Toilet Transfer Goal Standby Assistance Shower Transfer Goal Contact Guard Assistance Patient/Caregiver Education Goal Demonstrate Energy Conservation and Pacing Caregiver Independent Assisting Patient Days to Meet Goals 5 Frequency of Treatment Frequency Of Treatment Once a Day Treatment Plan OT Treatment Plan ADL Training Functional Mobility Patient/Family Education Discharge Planning Other Treatment Recommendations and Next Standing for grooming with Treatment Focus recliner behind her. Discharge Recommendations OT Discharge Recommendations SNF Rehab Home Equipment Needs Pt has all.
[2018-04-05] MEDS: ACETAMINOPHEN 325 MG TABLET 650 MG PO ×2 (16:44→21:20)
[2018-04-05] MEDS: LINEZOLID 600 MG/300 ML IV.SOLN IV (16:44)
[2018-04-05] MEDS: ROSUVASTATIN 10 MG TABLET 5 MG PO (16:45)
--- NOTE | 2018-04-05 17:18 | P.PN_ITS ---
Subjective Date Patient Seen: 04/05/18 Time Patient Seen: 14:45 Interval history: This is a 72-year-old female with complex medical problems presenting with acute kidney injury secondary to dehydration/volume depletion, acute MRSA UTI No events since admission, overall reports ongoing clinical improvement , with no new complaints as of this morning, remains on 02 support via NC at 4-6 l/min secopndary to CHF with severe pulmonary HTN. Exam Vital Signs (past 8 hours): - 04/05/18 11:56 04/05/18 15:54 Temperature 97.7 F 97.1 F L Pulse Rate 60 61 Respiratory Rate 18 19 Blood Pressure 126/47 H 133/86 H Pulse Oximetry 94 100 Oxygen Delivery Method Nasal Cannula Oxygen Flow Rate 4 Narrative Exam Narrative: Constitutional: well-developed , obese female in no apparent distress ;she is alert and oriented x 3 HEENT: Unremarkable exam Eyes: PERRLA, EOMI Neck: Supple, no lymphadenopathy, no jugular venous distention Pulmonary: distant breath sounds, decreased at bases , with no obvious rales, crepitations or wheezing detected Cardiovascular: distant heart sounds, regular rhythm rate, no murmurs Gastrointestinal: Abdomen is soft, nontender, nondistended, bowel sounds present, no discernible organomegaly Extremities: Warm to touch, with chronic non pitting edema Skin: Warm, well perfused, no skin rashes, no lesions Objective Imaging Echocardiogram: Radiologist's impression: Echocardiogram: Radiologist's impression: Interpretation Summary Left ventricular systolic function is normal with the ejection fraction grossly estimated to be 60-65% although with a significant dyssynchronous contraction pattern, consistent with a conduction abnormality or paced rhythm but no other obvious focal wall motion abnormalities. There is moderate concentric left ventricular hypertrophy that appears more prominent apically, raising the question for a possible apical variant hypertrophic cardiomyopathy. Left ventricular cavity size is relatively small with a probable mild intracavitary pressure gradient. Diastolic function could not be accurately assessed due to contradictory data but filling pressures are likely elevated. The right ventricle is moderately dilated and right ventricular systolic function is moderately reduced. There is severe pulmonary hypertension with the right ventricular systolic pressure estimated at 71 mmHg assuming a right atrial pressure of 15 mm Hg. The left atrium is moderately dilated and the right atrium is severely dilated. There is severe tricuspid regurgitation and moderate pulmonic regurgitation but no other significant valvular heart disease. Labs Result Diagrams: 04/05/18 05:23 04/05/18 05:23 Labs: Laboratory Results - last 24 hr 04/05/18 04/05/18 05:23 05:23 WBC 8.5 RBC 4.01 Hgb 10.4 L Hct 33.2 L MCV 82.7 MCH 25.8 L MCHC 31.2 RDW 17.8 H Plt Count 118 L Neut % (Auto) 57.8 Lymph % (Auto) 25.7 [place] % (Auto) 9.6 Eos % (Auto) 6.3 H Baso % (Auto) 0.6 Neut # (Auto) 4900 Sodium 139 Potassium 4.2 Chloride 100 Carbon Dioxide 29 BUN 38 H Creatinine 1.80 H Estimated GFR 27.7 L BUN/Creatinine Ratio 21.1 Glucose 124 H Calcium 8.8 Magnesium 1.9 Assessment & Plan Plan: Assessment/Plan Narrative: 1. Acute on chronic renal failure: slowly resolving. Creatinine level on admission at 2.4, increased to 2.9 and after careful IV hydration decreased to 1.8 Hold nephrotoxic medications, renal ultrasound with no hydronephrosis bilaterally. No renal calculi nor cysts. No solid masses. Right kidney measures 12.7 cm. Left kidney measures 12.1 cm. Right renal cortical thickness is 1.6 cm. Left renal cortical thickness is 1.8 mm. 2. MRSA UTI: clinically resolving. IV vancomycin was replaced by PO linezolid to reduce vancomycin nephrotoxicity . 3. Diabetes mellitus, Type 2: Currently with acceptable blood glucose control , continue current insulin management. 4. Peripheral neuropathy: Continue gabapentin at outpatient dose 5. Congestive heart failure, chronic, diastolic with severe pulmonary HTN: Appears to be controlled, management as above. Interval echocardiogram waas significant for severe pulmonary HTN with RV pressure of 71 mm Hg. Discussed management over the phone with patient inner diameter grinder tool ' he recommended careful diuresis, follow up with him upon discharge, 5. Troponin elevation: Mild, most probable secondary to demand ischemia in setting of acute on chronic renal failure. Continue current therapy previous aspirin and statins. 6. Nonpitting edema lower extremities: Possibly multifactorial. Discontinue treatment with Norvasc on suspicion of fluid retention in lower extremities caused by calcium channel blockers. 7. Deconditioning/ debility: anticiapate need for SNF placement Time Spent With Patient Time with patient: 25 - 35 minutes Quality VTE Deep Vein Thrombosis/Pulmonary Embolism Present on Admission: No
--- NOTE | 2018-04-05 20:30 | RT ---
BREATH SOUNDS ARE DECREASED IN BLL. NO WHEEZES NOTED. RR = 16. BRONCHODILATOR NOT NEEDED AT THIS TIME.
[2018-04-05] MEDS: LINEZOLID 600 MG TABLET PO (21:20)
[2018-04-06 00:13] VITALS: BP 133/83; PULSE 60; RESP 16; TEMP 36.4; O2SAT 93
[2018-04-06 00:30] VITALS: O2SAT 93
[2018-04-06 06:34] VITALS: BP 130/80; PULSE 60; RESP 16; TEMP 36.6; O2SAT 92
[2018-04-06] MEDS: PANTOPRAZOLE 40 MG TABLET PO (06:48)
[2018-04-06 08:00] VITALS: BP 140/78; PULSE 62; RESP 19; TEMP 36.9; O2SAT 90
[2018-04-06 08:36] VITALS: O2SAT 85; O2SAT 92
[2018-04-06] MEDS: ALLOPURINOL 100 MG TABLET PO (09:22)
[2018-04-06] MEDS: POTASSIUM CHLORIDE 20 MEQ TAB PO (09:22)
[2018-04-06] MEDS: LINEZOLID 600 MG TABLET PO (09:22)
[2018-04-06] MEDS: ASPIRIN EC 81 MG TABLET PO (09:22)
[2018-04-06] MEDS: levETIRAcetam 250 MG TABLET 500 MG PO (09:23)
[2018-04-06] MEDS: SODIUM CHLORIDE 0.9% FLUSH 10 ML IV (09:26)
[2018-04-06] MEDS: METOPROLOL ER 50 MG TABLET 100 MG PO (09:26)
[2018-04-06] MEDS: FUROSEMIDE 20 MG TABLET PO (09:43)
--- NOTE | 2018-04-06 11:43 | CM.DPC ---
DCP/continued: Reviewed chart. Per MD in AM rounds patient medically cleared to d/c to SNF today. FINANCIAL SERVICE REPRESENTATIVE met with patient explained CM team role. Patient aware and agreeable to discharge. Patient came from [facility] and would like to return. Placed call to [facility] admit spoke with Sena. They confirm that they can accept today. Patient scheduled to be picked up at approximately 2:00pm. Patient reports that she will contact her spouse. RN provided with number to give nursing report. FINANCIAL SERVICE REPRESENTATIVE aske NATHALIE/Jada to finalize discharge arrangements and fax orders to [facility]. P: Return to [facility] today. JAC Layne
[2018-04-06 12:00] VITALS: BP 131/68; PULSE 71; RESP 18; TEMP 36.7; O2SAT 92
--- NOTE | 2018-04-06 12:13 | PT.IPTN ---
Current Diagnoses Heart failure, unspecified (03/31/18) Physical Therapy Treatment Note M2 PT-IP Current Condition Start: 04/02/18 15:45 Freq: NEEDED Status: Active Protocol: Document 04/02/18 13:40 MDD (Rec: 04/02/18 16:00 MDD [id number]) Physical Therapy Current Condition Current Condition Evaluation Date 04/02/18 Treatment Diagnosis nausea, CHF Onset Date 03/31/18 Precautions Other Precautions farley catheter M3 PT-IP Subjective Start: 04/02/18 15:45 Freq: NEEDED Status: Active Protocol: Document 04/06/18 10:15 CLB (Rec: 04/06/18 12:13 CLB [id number]) Subjective Physical Therapy Visit Type Type Treatment Note Visit Start Time 10:15 Visit Stop Time 10:45 Total Visit Minutes 30 Notes contact precautions Number of JOINT RUNNER Visits 1 Physical Therapy Visit Comments Patient Comments Pt wanting to use BSC then sit in chair. Therapy Pain Assessment Pain When Pain Assessed At Rest Pain Present Pain Present Pain Reported Location Right Shoulder Intensity 3 Scale Used Numeric (1 - 10) Pain Behaviors Holding Area M4 PT-IP Mobility and Gait Start: 04/02/18 15:45 Freq: NEEDED Status: Active Protocol: Document 04/06/18 10:15 CLB (Rec: 04/06/18 12:13 CLB [id number]) PT-Bed Mobility Assessment Rolling Type of Rolling Roll to Right Level of Assist Contact Guard Assistance 1 Person Assistance Supine to Sit Supine to Sit Minimal Assistance 1 Person Assistance Head of Bed Elevated Bedrails PT-Transfer Assessment Sit to and From Stand Sit to and from Stand Contact Guard Assistance Equipment Transfer Assistive Device Gait Belt Front Wheeled Walker Transfers Transfer Destination Bed Bedside Commode Transfer Technique Stand Step Pivot Transfer Ability Level of Assist Contact Guard Assistance Comments Mobility Comments Pt needs assist with O2 lines during transfers. SBA for standing balance and cues for breathing while MASTER SONAR TECHNICIAN performed pericare. Gait Assessment Gait Gait Assistance Required: Contact Guard Assist Minimum Assistance Distance (Feet) (feet) 5 Assistive Devices Assistive Device Gait Belt Front Wheeled Walker Gait Deviations General Gait Pattern Decreased Stride Length Decreased Feet Clearance Wide Based Gait Factors Limiting Gait Function Factors Limiting Gait Function Decreased Activity Tolerance Decreased Strength Respiratory Distress Comments Gait Comments Pt on 6L O2. Pt had decrease in O2 sat of 79% getting OOB which increased to 90% within 30 seconds with pursed lip breathing at bed side. M5 PT-IP Objective Assessments Start: 04/02/18 15:45 Freq: NEEDED Status: Active Protocol: Document 04/02/18 13:40 MDD (Rec: 04/02/18 16:00 MDD [id number]) Orientation Orientation/Cognition Level of Alertness Alert Orientation Name Age Birthday Month Date Year Day of Week Place Situation Language Function Ability No Deficits Noted Safety Awareness Understands Safety Issues Memory Description No Deficits Noted Gross Range of Motion Lower Extremity ROM Assessment Bilaterally Impaired Impairments B knees limited to roughly 100 degrees flexion. B ankles limited to neutral. Strength Lower Extremity Strength Assessment Right Impaired Hip B hip flexion 3/5 Ankle R df 3/5, L df 4/5 Sensation Assessment Sensation Gross Sensation Right LE Impaired Light Touch Impaired Sensation Description Paresthesia Comments Sensation Comments Pt reports plantar surface of R foot feels different than left M6 PT-IP Treatment Start: 04/02/18 15:45 Freq: NEEDED Status: Active Protocol: Document 04/06/18 10:15 CLB (Rec: 04/06/18 12:13 CLB [id number]) Physical Therapy Treatment Exercises Exercises Ankle Pumps Quad Sets M7 PT-IP Assessment and Plan Start: 04/02/18 15:45 Freq: NEEDED Status: Active Protocol: Document 04/06/18 10:15 CLB (Rec: 04/06/18 12:13 CLB [id number]) PT Summary Assessment and Plan Summary Assessment Summary Pt on 6L O2. Pt had decrease in O2 sat of 79% getting OOB which increased to 90% within 30 seconds with pursed lip breathing at bed side. After using BSC pt felt too fatigued to ambulate any farther than the chair. Goals Bed Mobility Goal Minimal Assistance Transfer Goal Standby Assistance Gait Goal Standby Assistance Gait Distance 30 Days to Meet Goals 3 Frequency of Treatment Frequency Of Treatment Once a Day Treatment Plan Physical Therapy Treatment Plan Bed Mobility Training Transfer Training Gait Training Therapeutic Exercise Balance Retraining Discharge Planning Other Recommendations and Next Treatment monitor oxygen needs during Focus activity, progress activity gradually due to cardiac and respiratory issues Recommendations To Nursing Amount of Assist Needed 1 Person Assist Discharge Recommendations PT Discharge Recommendations SNF Rehab Other Discharge Recommendations Pt does not have enough help at home to return at this level of care
--- NOTE | 2018-04-06 13:42 | P.DS_ITS ---
History of Present Illness Date Patient Seen: 04/06/18 Time Patient Seen: 09:30 Chief complaint: nausea Narrative: This is a 72-year-old female with complex medical problems presenting with acute kidney injury secondary to dehydration/volume depletion, acute MRSA UTI No events since admission, overall reports ongoing clinical improvement , with no new complaints as of this morning, remains on 02 support via NC at 4l/min secondary to CHF with severe pulmonary HTN. Discharge Providers Date of admission: 03/31/18 14:15 Primary care physician: Jesus Gutierrez MD Consults: 03/31/18 17:10 Consult to Brick And [employer] Mason Routine Comment: 04/02/18 09:51 Consult to Physical Therapy Evaluate & Treat Comment: Physician Instructions: Evaluate and Treat 04/05/18 09:53 Consult to Occupational Therapy Evaluate & Treat Comment: Physician Instructions: Evaluate and treat Discharge provider: Elizabeth Blackwood MD Summary Discharge Diagnosis: 1. Acute on chronic renal failure: resolving. Creatinine level on admission at 2.4, increased to 2.9 and after careful IV hydration decreased to 1.8 Hold nephrotoxic medications, renal ultrasound with no hydronephrosis bilaterally. No renal calculi nor cysts. No solid masses. Right kidney measures 12.7 cm. Left kidney measures 12.1 cm. Right renal cortical thickness is 1.6 cm. Left renal cortical thickness is 1.8 mm. 2. MRSA UTI: clinically resolving. IV vancomycin was replaced by PO linezolid to address potential vancomycin nephrotoxicity . 3. Diabetes mellitus, Type 2: Currently with acceptable blood glucose control on insulin sliding scale and ADA diet, continue as is. 4. Peripheral neuropathy: Continue gabapentin at outpatient dose 5. Congestive heart failure, chronic, diastolic with severe pulmonary HTN: Appears to be controlled, management as above. Interval echocardiogram waas significant for severe pulmonary HTN with RV pressure of 71 mm Hg. Discussed management over the phone with patient wallet assembler ' he recommended careful diuresis, follow up with him upon discharge, 5. Troponin elevation: Mild, most probable secondary to demand ischemia in setting of acute on chronic renal failure. Continue current therapy previous aspirin and statins. 6. Nonpitting edema lower extremities: Possibly multifactorial/ secondary to CHF, diastolic with severe pulmonary HTN. 7. Deconditioning/ debility: getting discharged to SNF placement Hospital Course: This is a 72-year-old female with complex medical/cardiac problems who was admitted to with acute MRSA UTI, acute on chronic kidney injury in the setting of diabetic nephropathy, CHF exacerbation with underlying severe pulmonary hypertension Patient was treated with IV vancomycin initially which then subsequently switched to oral linezolid for MRSA UTI. With significant improvement in kidney function on careful IV hydration. Patient started careful diuresis per recommendation of Dr. Bryant address underlying congestive heart failure with severe pulmonary hypertension. Status at Discharge Functional status at discharge: uses cane/walker Overall status at discharge: patient is progressing back to baseline Time Spent with Patient Greater than 30 minutes Exam Vital Signs (past 8 hours): - 04/06/18 06:34 04/06/18 08:00 04/06/18 08:36 Temperature 97.8 F 98.4 F Pulse Rate 60 62 Respiratory Rate 16 19 Blood Pressure 130/80 H 140/78 H Pulse Oximetry 92 90 L 92 04/06/18 12:00 Temperature 98.1 F Pulse Rate 71 Respiratory Rate 18 Blood Pressure 131/68 H Pulse Oximetry 92 Oxygen Delivery Method Room Air Oxygen Flow Rate 4 Objective Labs Result Diagrams: 04/05/18 05:23 04/05/18 05:23 Discharge Plan Discharge Plan Patient Disposition: SNF Transfer to: [facility] Transportation: Ambulance Discharge comment: Patient will need PRN straight cath to address incomplete bladder emptying after Page removal I certify the postop hospital custodial care is medically necessary on a continuing basis for any conditions for which he/ she received care during this hospitalization.: Yes The receiving facility has agreed to accept transfer and provide medical treatment.: Yes Discharge Health Status Multidrug resistant organism: No MDRO Provider Discharge Instructions Diet: Carb-consistent/Diabetic Liquid consistency: Normal/Thin Food texture: Regular Activity: advance as tolerated Discharge Data Primary Care Provider: Jesus Gutierrez Attending Provider: Kehinde Estrada Admit Date/Time: 03/31/18 14:15 Quality VTE Deep Vein Thrombosis/Pulmonary Embolism Present on Admission: No
--- NOTE | 2018-04-06 16:29 | PC.NURSE ---
[facility] shift note: Patient transported to [facility] via by [facility] staff. Patient awake and alert, pleasant and cooperative. Transfer packet given to transporter. Sara BETTS given report to receiving nurse.
== END 2018-04-06 16:00 | DRG 682 ==
LOC: ED 14:09 → AC 14:16
PROVIDERS: Hospitalist; Admitting Provider Internal Medicine; Emergency Provider Emergency Medicine; PCP Family Medicine; Visit Provider Internal Medicine
DX: N17.9 Acute kidney failure, unspecified (principal); J96.21 Acute and chronic respiratory failure with hypoxia; Z68.41 Body mass index [BMI] 40.0-44.9, adult; N39.0 Urinary tract infection, site not specified; I50.32 Chronic diastolic (congestive) heart failure; I24.8 Other forms of acute ischemic heart disease; N32.0 Bladder-neck obstruction; R41.0 Disorientation, unspecified; R42 Dizziness and giddiness; E66.3 Overweight; B95.62 Methicillin resistant Staphylococcus aureus infection as the cause of diseases classified elsewhere; R60.0 Localized edema; E11.42 Type 2 diabetes mellitus with diabetic polyneuropathy; E86.0 Dehydration; Z79.4 Long term (current) use of insulin; I27.20 Pulmonary hypertension, unspecified; N18.9 Chronic kidney disease, unspecified
CPT/HCPCS: 36415; 36592; 70450; 71045; 76770; 80048; 80053; 80076; 81003; 81015; 82550; 82553; 82962; 83605; 83735; 83880; 84145; 84484; 85025; 87040; 87077; 87086; 87147; 87186; 93005; 93306; 93970; 94640; 94760; 94762; 96374; 97110; 97116; 97162; 97166; 97530; 99283; 99285; J1940; J2020

== ENCOUNTER → 2018-04-09 06:57 | Outpatient (REF) | payer SELFPAY ==
[2018-03-31 16:15] VITALS: BMI 44.6
[2018-04-09 07:25] LABS: Add Manual Diff / Slide Review NO; Basophils Percent Auto 0.3 % (0-2); Eosinophils Percent Auto 4.5 % (2-4); Hematocrit 34.8 % (36-46); Hemoglobin 10.7 g/dL (12.0-16.0); Lymphocytes Percent Auto 11.3 % (25-40); Mean Corpuscular HGB Conc 30.6 % (30-36); Mean Corpuscular Hemoglobin 25.2 PG (26-34); Mean Corpuscular Volume 82.4 fL (80-100); Neutrophils Absolute Auto 9700 /uL (3000-5900); Neutrophils Percent Auto 77.9 % (50-75); Platelet Count 142 X10^3/uL (150-400); Red Blood Cell Count 4.23 X10^6/uL (4.0-5.2); Red Cell Distribution Width 18.8 % (11.6-14.8); White Blood Cell Count 12.5 X10^3/uL (4.5-11.0)
[2018-04-09 07:39] LABS: BUN Creatinine Ratio 18.5 (6-22); Blood Urea Nitrogen 37 mg/dL (7-17); Calcium 8.9 mg/dL (8.4-10.2); Carbon Dioxide 30 mmol/L (22-32); Chloride 99 mmol/L (98-107); Estimated Glomerular Filt Rate 24.6 mL/min (>60); Glucose 103 mg/dL (80-110); HEMOLYSIS < 15 (0-50); Potassium 4.5 mmol/L (3.4-5.1); Sodium 139 mmol/L (137-145)
== END ==
LOC: LAB 06:57
PROVIDERS: PCP Family Medicine; Visit Provider Internal Medicine
DX: Z79.01 Long term (current) use of anticoagulants (principal); N18.9 Chronic kidney disease, unspecified; N39.0 Urinary tract infection, site not specified
CPT/HCPCS: 36415; 80048; 85025

== ENCOUNTER → 2018-04-12 08:20 | Outpatient (REF) | payer SELFPAY ==
[2018-03-31 16:15] VITALS: BMI 44.6
[2018-04-12 09:23] LABS: Add Manual Diff / Slide Review NO; Basophils Percent Auto 0.9 % (0-2); Hematocrit 32.2 % (36-46); Hemoglobin 10.2 g/dL (12.0-16.0); Lymphocytes Percent Auto 19.5 % (25-40); Mean Corpuscular HGB Conc 31.6 % (30-36); Mean Corpuscular Hemoglobin 25.7 PG (26-34); Mean Corpuscular Volume 81.5 fL (80-100); Monocytes Percent Auto 12.2 % (3-14); Neutrophils Absolute Auto 5500 /uL (3000-5900); Neutrophils Percent Auto 60.4 % (50-75); Platelet Count 133 X10^3/uL (150-400); Red Blood Cell Count 3.95 X10^6/uL (4.0-5.2); Red Cell Distribution Width 18.7 % (11.6-14.8)
[2018-04-12 09:38] LABS: BUN Creatinine Ratio 18.6 (6-22); Blood Urea Nitrogen 39 mg/dL (7-17); Calcium 8.9 mg/dL (8.4-10.2); Carbon Dioxide 29 mmol/L (22-32); Chloride 101 mmol/L (98-107); Estimated Glomerular Filt Rate 23.2 mL/min (>60); Glucose 94 mg/dL (80-110); HEMOLYSIS < 15 (0-50); Potassium 4.2 mmol/L (3.4-5.1); Sodium 140 mmol/L (137-145)
== END ==
LOC: LAB 08:20
PROVIDERS: PCP Family Medicine; Visit Provider Internal Medicine
DX: I10 Essential (primary) hypertension (principal); N18.9 Chronic kidney disease, unspecified; D72.829 Elevated white blood cell count, unspecified
CPT/HCPCS: 36415; 80048; 85025

== ENCOUNTER → 2018-04-19 17:06 | Outpatient (REF) | payer SELFPAY ==
[2018-03-31 16:15] VITALS: BMI 44.6
[2018-04-19 17:13] LABS: Add Manual Diff / Slide Review NO; Basophils Percent Auto 0.8 % (0-2); Eosinophils Percent Auto 4.5 % (2-4); Hematocrit 39.5 % (36-46); Hemoglobin 12.1 g/dL (12.0-16.0); Lymphocytes Percent Auto 16.4 % (25-40); Mean Corpuscular HGB Conc 30.7 % (30-36); Mean Corpuscular Hemoglobin 25.2 PG (26-34); Monocytes Percent Auto 6.8 % (3-14); Neutrophils Absolute Auto 7000 /uL (3000-5900); Neutrophils Percent Auto 71.5 % (50-75); Platelet Count 250 X10^3/uL (150-400); Red Blood Cell Count 4.81 X10^6/uL (4.0-5.2); Red Cell Distribution Width 19.1 % (11.6-14.8); White Blood Cell Count 9.8 X10^3/uL (4.5-11.0)
[2018-04-19 17:41] LABS: BUN Creatinine Ratio 21.4 (6-22); Blood Urea Nitrogen 45 mg/dL (7-17); Calcium 9.1 mg/dL (8.4-10.2); Carbon Dioxide 29 mmol/L (22-32); Chloride 96 mmol/L (98-107); Estimated Glomerular Filt Rate 23.2 mL/min (>60); Glucose 166 mg/dL (80-110); HEMOLYSIS < 15 (0-50); Potassium 4.3 mmol/L (3.4-5.1); Sodium 138 mmol/L (137-145)
== END ==
LOC: LAB 17:06
PROVIDERS: PCP Family Medicine; Visit Provider Internal Medicine
DX: N99.0 Postprocedural (acute) (chronic) kidney failure (principal)
CPT/HCPCS: 80048; 83880; 85025

== ENCOUNTER → 2018-05-03 07:12 | Outpatient (REF) | payer SELFPAY ==
[2018-03-31 16:15] VITALS: BMI 44.6
[2018-05-03 08:00] LABS: Blood Urea Nitrogen 42 mg/dL (7-17); Calcium 8.8 mg/dL (8.4-10.2); Carbon Dioxide 31 mmol/L (22-32); Chloride 100 mmol/L (98-107); Estimated Glomerular Filt Rate 24.5 mL/min (>60); Glucose 87 mg/dL (80-110); HEMOLYSIS < 15 (0-50); Potassium 4.2 mmol/L (3.4-5.1); Sodium 139 mmol/L (137-145)
== END ==
LOC: LAB 07:12
PROVIDERS: PCP Family Medicine; Visit Provider Hospitalist
DX: R06.09 Other forms of dyspnea (principal)
CPT/HCPCS: 36415; 80048; 83880